=== PATIENT | female | born 1950 | race Caucasian/White ===

== ENCOUNTER 2017-01-28 09:16 | Outpatient (CLI) | payer MEDICARE, BC ==
[2017-01-28 09:59] VITALS: BMI 38.7
== END 2017-01-28 09:17 | disposition home or self-care (01) ==
LOC: LABBT 09:16
PROVIDERS: ATTEND Orthopaedic Surgery Hand Surgery
DX: Z01.812 Encounter for preprocedural laboratory examination (principal); M65.321 Trigger finger, right index finger

== ENCOUNTER 2017-01-29 13:12 | Day surgery (SDC) | payer MEDICARE, BC ==
[2017-01-29] MEDS ORDERED: CEFAZOLIN/Water 2 GM/20 ML SYRINGE ONE (18:16)
[2017-01-29] MEDS ORDERED: Fentanyl 100 MCG/2 ML VIAL ONE (20:16)
[2017-01-29] MEDS ORDERED: Diprivan 20 ML ONE (20:16)
[2017-01-29] MEDS ORDERED: Midazolam HCl 2 mg/2 ml Vial ONE (20:16)
[2017-01-29] MEDS ORDERED: Bupivacaine/Epinephrine 0.25% 30 ML VIAL ONE (20:24)
[2017-01-29] MEDS ORDERED: Betamet Acet/Betamet Na Ph 30 MG/5 ML VIAL ONE (20:24)
[2017-01-29] MEDS ORDERED: Bupivacaine PF 0.5% 30 ML VIAL ONE (20:26)
[2017-01-29] MEDS ORDERED: Propofol 200 MG/20 ML VIAL ONE (20:45)
[2017-01-29] MEDS ORDERED: Ketorolac Tromethamine 30 MG/ML VIAL ONE (20:45)
[2017-01-29] MEDS ORDERED: traMADol HCl 50 MG TAB ONE (21:59)
--- NOTE | 2017-01-30 06:32 | OP ---
DATE OF PROCEDURE: 01/29/2017 PREOPERATIVE DIAGNOSIS: Right index finger trigger digit. FINDINGS: Right index finger trigger digit has a very tight A1 pippa with tenosynovial edema swell ing especially proximal to this. PROCEDURE PERFORMED: Right index finger trigger digit release. FINDINGS: Small amount of tenosynovium, which was resected, but did not require formal radical teno synovectomy. SURGEON: Yazan Black M.D. VIROLOGY TEACHER: Jose De Jesus Morel, Wafer Fab Technician. COMPLICATIONS: None. TOURNIQUET TIME: 15 minutes. ESTIMATED BLOOD LOSS: 5 mL. INDICATIONS: The patient with failed conservative treatment to include injection, therapy for karthik er digits, become very thick for now and limiting her activities. DESCRIPTION OF PROCEDURE: After successful propofol anesthesia by [place] anesthesia, patient was given 12 mL of 0.5% metacarpophalangeal joint level block with palmar approach and this was along th e incision outlined zigzag centered on the A1 pippa was very thick. Then, waiting appropriate numb er of minutes, approximately 9, for the medicine to setup, we finished exsanguinating the limb and e xsanguinated the tourniquet after joint preparation, and we were able to perform a zigzag incision i n line with the A1 pippa. Digital nerve branch identified, protected away from the center field, a nd the pippa was identified under direct visualization. We then released it with a [place] blade an d then inspected proximally distal side and proximal to the A1 pippa and marked a small amount of t enosynovial edema, which was resected. No formal tenosynovectomy was indicated. We then closed the incision with interrupted 4-0 nylon in simple pattern. Bulky dressing was applied. The patient le ft the operating room with a pink digit, and no evidence of anesthetic or operative complication.
== END 2017-01-29 22:20 | disposition home or self-care (01) ==
LOC: SDC 13:12
PROVIDERS: ATTEND Orthopaedic Surgery Hand Surgery
PROC: 0LN70ZZ Release Right Hand Tendon, Open Approach (ICD-10-PCS; principal; 2017-01-29)
DX: M65.321 Trigger finger, right index finger (principal); G47.33 Obstructive sleep apnea (adult) (pediatric); M06.9 Rheumatoid arthritis, unspecified; E78.5 Hyperlipidemia, unspecified; E10.22 Type 1 diabetes mellitus with diabetic chronic kidney disease; I12.9 Hypertensive chronic kidney disease with stage 1 through stage 4 chronic kidney disease, or unspecified chronic kidney disease; N18.9 Chronic kidney disease, unspecified; D69.6 Thrombocytopenia, unspecified; Z79.82 Long term (current) use of aspirin; Z79.899 Other long term (current) drug therapy; Z99.89 Dependence on other enabling machines and devices; Z88.5 Allergy status to narcotic agent; Z88.2 Allergy status to sulfonamides; Z88.7 Allergy status to serum and vaccine; Z88.8 Allergy status to other drugs, medicaments and biological substances; Z91.041 Radiographic dye allergy status; Z98.1 Arthrodesis status; Z96.0 Presence of urogenital implants; Z90.710 Acquired absence of both cervix and uterus; Z90.49 Acquired absence of other specified parts of digestive tract; Z98.890 Other specified postprocedural states
CPT/HCPCS: J0702; J1885; J2250; J2704; J3010; S0020

== ENCOUNTER 2017-12-11 11:13 | Outpatient (CLI) | payer MEDICARE, BC | END 2017-12-11 11:14 | disposition home or self-care (01) | LOC: BICRAD 11:13 | DX: M13.0 Polyarthritis, unspecified (principal); M25.50 Pain in unspecified joint; M25.60 Stiffness of unspecified joint, not elsewhere classified; M19.041 Primary osteoarthritis, right hand; M20.091 Other deformity of right finger(s); M20.092 Other deformity of left finger(s); M17.12 Unilateral primary osteoarthritis, left knee; M17.11 Unilateral primary osteoarthritis, right knee; M47.896 Other spondylosis, lumbar region; M51.36 Other intervertebral disc degeneration, lumbar region; M46.92 Unspecified inflammatory spondylopathy, cervical region; Z98.890 Other specified postprocedural states | CPT/HCPCS: 36415; 72040; 72100; 80053; 80074; 81003; 82306; 82550; 83516; 83520; 84436; 84443; 84479; 84550; 85025; 85652; 86038; 86060; 86140; 86200; 86225; 86235; 86376; 86812 ==

== ENCOUNTER 2018-01-07 05:59 | Day surgery (SDC) | payer MEDICARE, BC ==
[2018-01-06 09:34] VITALS: BMI 33.2
[2018-01-07] MEDS ORDERED: CEFAZOLIN/Water 2 GM/20 ML SYRINGE ONE (06:37)
[2018-01-07] MEDS ORDERED: Bacitracin Zinc Ointment 30 gm TUBE ONE (06:45)
[2018-01-07] MEDS ORDERED: Bupivacaine PF 0.5% 30 ML VIAL ONE (06:45)
[2018-01-07] MEDS ORDERED: Betamet Acet/Betamet Na Ph 30 MG/5 ML VIAL ONE (06:45)
[2018-01-07] MEDS ORDERED: Fentanyl 100 MCG/2 ML VIAL ONE (06:54)
--- NOTE | 2018-01-07 10:22 | OP ---
DATE OF PROCEDURE: 01/07/2018 PREOPERATIVE DIAGNOSIS: Left carpal tunnel syndrome. POSTOPERATIVE DIAGNOSIS: Left carpal tunnel syndrome. FINDINGS: Very tight transcarpal ligament distal one-third and central third. PROCEDURE PERFORMED: Carpal tunnel release, left. SURGEON: Yazan Black MD ANESTHESIA: General LMA technique augmented by 10 mL of 0.5% metacarpophalangeal joint block at the level of the incision. INCISION TYPE: Mini 2.0 cm incision just proximal to the volar flexion crease. INJECTABLE: 1. 10 mL 0.5% Marcaine, 5 given before the procedure and 5 after along the incision line. 2. 3 mL of Celestone (betamethasone) 80 mg per mL into the carpal canal over the nerve. No hourglass formation seen. Mild stippling. DESCRIPTION OF PROCEDURE: After successful general LMA technique, the limb was prepped and draped. Timeout was done appropriately to include beta fozia and delineation as is customary and central to this facility. The patient then had the identified limb matched the consent, history and physical and the timeout. The limb was exsanguinated, and the tourniquet inflated to 250 mmHg pressure with the entire roll eileen t padding used to pad the tourniquet. The patient then had a mini incision outlined in line from med ial to lateral with the center portion of the ring finger and as far distal as Tineo's cardinal line , therefore approximately 5 mL distal to the volar flexion crease. This was carried through the skin and subcutaneous tissue until we found the transverse carpal ligament was very tight as described ab tra. We then released it from the mid portion distal end of it under direct visualization with a com bination of [place] blade and tenotomy scissors. Same technique was used to release it from the mid p ortion proximally. The findings listed above were then visualized, all the digital branches were int act. We then placed 3 mL of Celestone over the nerve in a drip technique. Deflated tourniquet and o btained hemostasis. The incision was closed with interrupted 4-0 nylon in a mattress pattern. Bulky dressing was applied . The patient left the operating room without evidence of anesthetic or operative complication.
[2018-01-07] MEDS ORDERED: Ondansetron HCl/PF 4 MG/2 ML Vial ONE (12:50)
[2018-01-07] MEDS ORDERED: Lidocaine 1% PF 5 ML VIAL ONE (12:50)
[2018-01-07] MEDS ORDERED: ePHEDrine/0.9% NaCl/PF SYRINGE 50 mg/10 ml ONE (12:50)
[2018-01-07] MEDS ORDERED: PHENYLEPHRINE-NS 100 MCG/ML 10 ML SYRINGE ONE (12:50)
[2018-01-07] MEDS ORDERED: PROPOFOL 200 MG/20 ML VIAL ONE (12:50)
== END 2018-01-07 09:39 | disposition home or self-care (01) ==
LOC: SDC 05:59
PROVIDERS: ATTEND Orthopaedic Surgery Hand Surgery
PROC: 01N50ZZ Release Median Nerve, Open Approach (ICD-10-PCS; principal; 2018-01-07)
DX: G56.03 Carpal tunnel syndrome, bilateral upper limbs (principal); E10.9 Type 1 diabetes mellitus without complications; M65.4 Radial styloid tenosynovitis [de Quervain]; M19.90 Unspecified osteoarthritis, unspecified site; M65.30 Trigger finger, unspecified finger; I10 Essential (primary) hypertension; G47.30 Sleep apnea, unspecified; Z79.4 Long term (current) use of insulin; Z79.899 Other long term (current) drug therapy
CPT/HCPCS: 36416; J0131; J0702; J2001; J2405; J2704; J3010; S0020

== ENCOUNTER 2019-04-21 13:22 | Outpatient (CLI) | payer MEDICARE, BC ==
--- NOTE | 2019-04-21 13:57 | BD ---
BONE DENSITOMETRY: Date: 04/21/2019 HISTORY: Postmenopausal screening. FINDINGS: Lumbar Spine: BMD (g/cm2) L1 1.290 T-Score: 2.7 L2 1.265 T-Score: 2.2 L3 1.376 T-Score: 2.7 L4 1.517 T-Score: 4.1 Total 1.358 T-Score: 2.8 Left Femoral Neck: 0.958 T-Score: 1.0 Total Femur: 1.162 T-Score: 1.8 IMPRESSION: Bone mineral density of the lumbar spine and femoral neck are both within normal range. POS: [facility]
== END 2019-04-21 13:23 | disposition home or self-care (01) ==
LOC: BICMAMMO 13:22
PROVIDERS: ATTEND Internal Medicine
DX: Z13.820 Encounter for screening for osteoporosis (principal)
CPT/HCPCS: 77080

== ENCOUNTER 2019-05-14 09:21 | Outpatient (CLI) | payer MEDICARE, BC | END 2019-05-14 09:22 | disposition home or self-care (01) | LOC: CTENTCT 09:21 | PROVIDERS: ATTEND Otolaryngology Plastic Surgery within the Head & Neck | DX: J01.91 Acute recurrent sinusitis, unspecified (principal) | CPT/HCPCS: 36415; 70486 ==

== ENCOUNTER 2019-10-13 10:41 | Outpatient (CLI) | payer MEDICARE, BC ==
--- NOTE | 2019-10-13 11:12 | RAD ---
EXAM: Two views chest PROVIDED CLINICAL HISTORY: Cough. COMPARISON: 04/04/2015 FINDINGS: Cardiac silhouette and pulmonary vasculature are within normal limits. Elevation right hemidiaphragm is again present. Lungs are clear. Postoperative changes lower cervical spine are present with degenerative changes in the thoracic spine. Left-sided PICC line and drainage catheter overlying righ t upper quadrant are no longer seen. No other interval change. IMPRESSION: No acute cardiopulmonary process.
== END 2019-10-13 10:42 | disposition home or self-care (01) ==
LOC: BICRAD 10:41
PROVIDERS: ATTEND Internal Medicine
DX: R05 Cough (principal); R11.0 Nausea; M06.9 Rheumatoid arthritis, unspecified
CPT/HCPCS: 36415; 71046; 80053; 80069; 80076; 81001; 82570; 83036; 83520; 84156; 84443; 85025; 85652; 86200; 87086

== ENCOUNTER 2019-10-20 09:44 | Outpatient (CLI) | payer MEDICARE, BC ==
--- NOTE | 2019-10-20 11:07 | ULT ---
Abdominal ultrasound: Grayscale images of abdomen obtained according to protocol. INDICATIONS: Abdominal pain FINDINGS: Patient is status post cholecystectomy. Common bile duct is normal caliber. Liver and spleen appear unremarkable. Pancreas is mostly obscured but appears unremarkable as visualized. Visualized aorta and IVC appear unremarkable. 2.0 cm cyst superior left kidney. Kidneys otherwise unremarkable. IMPRESSION: 1. Left renal cyst 2. Abdominal ultrasound otherwise unremarkable
== END 2019-10-20 09:45 | disposition home or self-care (01) ==
LOC: BICULT 09:44
PROVIDERS: ATTEND Internal Medicine
DX: M54.9 Dorsalgia, unspecified (principal); N28.1 Cyst of kidney, acquired
CPT/HCPCS: 93975

== ENCOUNTER 2020-05-30 13:03 | Outpatient (CLI) | payer MEDICARE, BC | END 2020-05-30 13:04 | disposition home or self-care (01) | LOC: BICRAD 13:03 | PROVIDERS: ATTEND Internal Medicine | DX: Z01.818 Encounter for other preprocedural examination (principal); E11.9 Type 2 diabetes mellitus without complications; Z79.899 Other long term (current) drug therapy | CPT/HCPCS: 71046; 80053; 81001; 82043; 83036; 85025; 85610; 85730 ==

== ENCOUNTER 2020-06-25 12:16 | Emergency (ER) | payer MEDICARE, BC ==
[2020-06-25 14:31] LABS: #Basophils 0.1 thou/uL (0.0-0.2); #Eosinphils 0.1 thou/uL (0.0-0.7); #Lymphocytes 1.9 thou/uL (1.20-3.40); #Monocytes 0.4 thou/uL (0.11-0.59); #Neutrophils 6.8 thou/uL (1.40-6.50); %Basophils 0.8 % (0.0-1.0); %Eosinophils 1.6 % (0.0-10.0); %Lymphocytes 20.1 % (21.0-51.0); %Monocytes 4.6 % (0.0-10.0); %Neutrophils 72.9 % (42.0-75.0); Hemoglobin 8.9 g/dL (12.0-16.0); Mean Corpuscular HGB CONC 32.5 g/dL (32.0-36.0); Mean Corpuscular Hemoglobin 33.4 pg (27.0-31.0); Mean Platelet Volume 8.5 fL (7.4-10.4); Platelet Count 186 thou/uL (130-400); RBC Distribution Width 12.2 % (11.5-14.5); Red Blood Cell (RBC) Count 2.67 mill/uL (4.20-5.40); White Blood Cell (WBC) Count 9.4 thou/uL (4.8-10.8)
[2020-06-25 14:37] LABS: INR-International Normal Ratio 1.1; Prothrombin Time 14.6 sec (12.0-14.7)
[2020-06-25 14:52] LABS: ALT (SGPT) Less than 7 U/L (8-55); AST (SGOT) 10 U/L (5-34); Albumin 3.3 g/dL (3.4-4.8); Alkaline Phosphatase 116 U/L (40-110); Anion Gap 15 mmol/L (10-20); BUN (Urea Nitrogen) 45 mg/dL (9.8-20.1); Bilirubin, Total 0.4 mg/dL (0.2-1.2); Calc. Creatinine Clearance 0 mL/min (70-130); Calcium 8.1 mg/dL (7.8-10.44); Carbon Dioxide 21 mmol/L (23-31); Chloride 109 mmol/L (98-107); Globulin 2.3 g/dL (2.4-3.5); Glucose 269 mg/dL (83-110); Potassium 4.7 mmol/L (3.5-5.1); Protein, Total 5.6 g/dL (5.8-8.1); Sodium 140 mmol/L (136-145)
[2020-06-25] MEDS ORDERED: Morphine 2 MG/ML VIAL ONE (15:26)
[2020-06-25 17:11] LABS: SARS-CoV-2 PCR by NAA Not Detected (NotDetected)
[2020-06-25] MEDS ORDERED: HYDROcodone/Acetaminophen 5/325 mg Tablet ONE (18:19)
== END 2020-06-25 18:40 | disposition home or self-care (01) ==
LOC: ERS 12:16
DX: I82.431 Acute embolism and thrombosis of right popliteal vein (principal); R06.02 Shortness of breath; R55 Syncope and collapse; Z20.822 Contact with and (suspected) exposure to COVID-19; M06.9 Rheumatoid arthritis, unspecified; I12.9 Hypertensive chronic kidney disease with stage 1 through stage 4 chronic kidney disease, or unspecified chronic kidney disease; E11.22 Type 2 diabetes mellitus with diabetic chronic kidney disease; E78.5 Hyperlipidemia, unspecified; E78.00 Pure hypercholesterolemia, unspecified; Z79.4 Long term (current) use of insulin; Z79.899 Other long term (current) drug therapy
CPT/HCPCS: 71045; 78451; 80053; 82274; 83880; 84484; 85025; 85610; 85730; 93005; 93970; 94760; A9540; J2270; U0003; U0005; 36415; 87635; 96374

== ENCOUNTER 2020-10-26 09:53 | Outpatient (CLI) | payer MEDICARE, BC | END 2020-10-26 09:54 | disposition home or self-care (01) | LOC: BICULT 09:53 | PROVIDERS: ATTEND Internal Medicine | DX: G45.9 Transient cerebral ischemic attack, unspecified (principal); I65.23 Occlusion and stenosis of bilateral carotid arteries | CPT/HCPCS: 93880 ==

== ENCOUNTER 2021-03-26 07:01 | Inpatient (IN) | payer MEDICARE, BC ==
[2021-03-26 08:24] LABS: #Basophils 0.1 thou/uL (0.0-0.2); #Lymphocytes 1.2 thou/uL (1.20-3.40); #Monocytes 0.4 thou/uL (0.11-0.59); #Neutrophils 5.7 thou/uL (1.40-6.50); %Basophils 0.8 % (0.0-1.0); %Eosinophils 0.1 % (0.0-10.0); %Neutrophils 78.2 % (42.0-75.0); Hemoglobin 10.5 g/dL (12.0-16.0); Mean Corpuscular Hemoglobin 32.8 pg (27.0-31.0); Mean Corpuscular Volume 99.4 fL (78.0-98.0); Platelet Count 172 thou/uL (130-400); RBC Distribution Width 13.1 % (11.5-14.5); White Blood Cell (WBC) Count 7.3 thou/uL (4.8-10.8)
[2021-03-26] MEDS ORDERED: Ondansetron PF 4 MG/2 ML Vial ONE (08:29)
[2021-03-26] MEDS ORDERED: methylPREDNISolone Sod Succ/PF 125 MG/2 ML VIAL ONE (08:29)
[2021-03-26] MEDS ORDERED: PROVENTIL INHALER 6.7 G (200 INHALATIONS) ONE (08:33)
[2021-03-26] MEDS ORDERED: Albuterol 200 PUFF (6.7GM INHALER) ONE (08:35)
[2021-03-26 08:40] LABS: ALT (SGPT) 14 U/L (8-55); AST (SGOT) 26 U/L (5-34); Albumin 3.8 g/dL (3.4-4.8); Alkaline Phosphatase 136 U/L (40-110); Anion Gap 18 mmol/L (10-20); BUN (Urea Nitrogen) 53 mg/dL (9.8-20.1); Bilirubin, Total 0.5 mg/dL (0.2-1.2); Calc. Creatinine Clearance 0 mL/min (70-130); Calcium 9.2 mg/dL (7.8-10.44); Carbon Dioxide 18 mmol/L (23-31); Chloride 104 mmol/L (98-107); Globulin 3.1 g/dL (2.4-3.5); Glucose 114 mg/dL (83-110); Potassium 4.3 mmol/L (3.5-5.1); Protein, Total 6.9 g/dL (5.8-8.1); Sodium 136 mmol/L (136-145)
[2021-03-26] MEDS ORDERED: cefTRIAXone\\ROCEPHIN 2 GM VIAL ONE (09:42)
[2021-03-26] MEDS ORDERED: Azithromycin 500 MG VIAL ONE (09:42)
[2021-03-26] MEDS ORDERED: Bisacodyl 5 MG TAB PO PRN (10:34)
[2021-03-26] MEDS ORDERED: cefTRIAXone\\ROCEPHIN 1 GM in Sodium Chloride 0.9% 100 ML IVPB SCH (11:00)
[2021-03-26 11:21] LABS: SARS-CoV-2 NAA Rapid Test DETECTED (NotDetected)
[2021-03-26] MEDS ORDERED: Dexamethasone 10 MG/ML VIAL SLOW IVP SCH (12:15)
[2021-03-26] MEDS ORDERED: Ascorbic Acid 500 mg Chewable Tablet PO SCH (12:15)
[2021-03-26] MEDS ORDERED: Zinc Sulfate 220 MG CAP PO SCH (12:15)
[2021-03-26] MEDS: Azithromycin 500 MG in Sodium Chloride 0.9% 250 ML 250 ML IVPB SCH (14:19)
[2021-03-26] MEDS ORDERED: Dexamethasone 10 MG/ML VIAL ONE (15:08)
[2021-03-26] MEDS ORDERED: Promethazine HCl 25 MG/ML VIAL ONE (15:41)
[2021-03-26] MEDS ORDERED: Acetaminophen 325 MG TAB ONE (15:41)
[2021-03-26] MEDS: Acetaminophen 325 MG TAB PO PRN ×2 (15:57→21:54)
[2021-03-26] MEDS: Promethazine HCl 25 MG in Sodium Chloride 0.9% 50 ML IVPB PRN ×2 (15:58→21:54)
[2021-03-26] MEDS ORDERED: Dextrose 5% in Water 1,000 ML IV PRN (19:29)
[2021-03-26] MEDS ORDERED: Dextrose 50% Abboject 50 ML SYRINGE SLOW IVP PRN (19:29)
[2021-03-26 20:58] VITALS: BMI 40.2
[2021-03-26] MEDS ORDERED: GUAIFENESIN SF SOLN 200 MG/10 ML UDCUP PO PRN (21:45)
[2021-03-26] MEDS: Benzonatate 100 MG CAP PO PRN (22:05)
[2021-03-27] MEDS: Promethazine HCl 25 MG in Sodium Chloride 0.9% 50 ML IVPB PRN ×3 (03:14→20:47)
[2021-03-27 06:26] LABS: #Lymphocytes 1.3 thou/uL (1.20-3.40); #Monocytes 0.7 thou/uL (0.11-0.59); #Neutrophils 6.1 thou/uL (1.40-6.50); %Basophils 0.5 % (0.0-1.0); %Eosinophils 0.3 % (0.0-10.0); %Lymphocytes 16.3 % (21.0-51.0); %Neutrophils 74.9 % (42.0-75.0); Hemoglobin 10.5 g/dL (12.0-16.0); Mean Corpuscular HGB CONC 33.4 g/dL (32.0-36.0); Mean Corpuscular Hemoglobin 34.3 pg (27.0-31.0); Mean Platelet Volume 8.5 fL (7.4-10.4); Platelet Count 161 thou/uL (130-400); RBC Distribution Width 13.2 % (11.5-14.5); Red Blood Cell (RBC) Count 3.07 mill/uL (4.20-5.40); White Blood Cell (WBC) Count 8.1 thou/uL (4.8-10.8)
[2021-03-27 06:51] LABS: Anion Gap 17 mmol/L (10-20); BUN (Urea Nitrogen) 48 mg/dL (9.8-20.1); Calc. Creatinine Clearance 51 mL/min (70-130); Calcium 8.9 mg/dL (7.8-10.44); Carbon Dioxide 16 mmol/L (23-31); Chloride 110 mmol/L (98-107); Glucose 100 mg/dL (83-110); Sodium 138 mmol/L (136-145)
[2021-03-27] MEDS: Zinc Sulfate 220 MG CAP PO SCH (09:54)
[2021-03-27] MEDS: Benzonatate 100 MG CAP PO PRN ×2 (09:54→20:46)
[2021-03-27] MEDS: Ascorbic Acid 500 mg Chewable Tablet PO SCH (09:54)
[2021-03-27] MEDS: Dexamethasone 10 MG/ML VIAL SLOW IVP SCH (09:55)
[2021-03-27] MEDS: Azithromycin 500 MG in Sodium Chloride 0.9% 250 ML 250 ML IVPB SCH (11:22)
[2021-03-27] MEDS ORDERED: cefTRIAXone\\ROCEPHIN 1 GM in Sodium Chloride 0.9% 100 ML IVPB SCH (12:00)
[2021-03-27] MEDS ORDERED: traMADol HCl 50 MG TAB PO PRN (12:25)
[2021-03-27] MEDS: HumaLOG 300 UNITS/3 ML VIAL SC PRN (17:16)
[2021-03-27] MEDS: Carvedilol 6.25 MG TAB PO SCH (20:45)
[2021-03-27] MEDS: Apixaban 5 MG TAB PO SCH (20:45)
[2021-03-27] MEDS: tiZANidine HCl 4 MG TAB PO SCH (20:46)
[2021-03-27] MEDS: Melatonin 3 MG TAB PO SCH (20:46)
[2021-03-27] MEDS: Lantus 1000 UNITS/10 ML VIAL SC SCH (20:47)
[2021-03-28] MEDS: HumaLOG 300 UNITS/3 ML VIAL SC PRN ×4 (05:52→20:17)
[2021-03-28 05:55] LABS: #Eosinphils 0.1 thou/uL (0.0-0.7); #Lymphocytes 1.3 thou/uL (1.20-3.40); #Monocytes 0.5 thou/uL (0.11-0.59); #Neutrophils 2.7 thou/uL (1.40-6.50); %Basophils 0.7 % (0.0-1.0); %Eosinophils 1.5 % (0.0-10.0); %Monocytes 11.3 % (0.0-10.0); %Neutrophils 58.5 % (42.0-75.0); Hemoglobin 10.1 g/dL (12.0-16.0); Mean Corpuscular HGB CONC 33.8 g/dL (32.0-36.0); Mean Corpuscular Hemoglobin 34.1 pg (27.0-31.0); Mean Platelet Volume 8.3 fL (7.4-10.4); Platelet Count 171 thou/uL (130-400); RBC Distribution Width 12.9 % (11.5-14.5); Red Blood Cell (RBC) Count 2.96 mill/uL (4.20-5.40); White Blood Cell (WBC) Count 4.7 thou/uL (4.8-10.8)
[2021-03-28 06:12] LABS: Anion Gap 16 mmol/L (10-20); BUN (Urea Nitrogen) 50 mg/dL (9.8-20.1); Calc. Creatinine Clearance 50 mL/min (70-130); Calcium 8.6 mg/dL (7.8-10.44); Carbon Dioxide 20 mmol/L (23-31); Chloride 107 mmol/L (98-107); Glucose 159 mg/dL (83-110); Potassium 4.5 mmol/L (3.5-5.1); Sodium 138 mmol/L (136-145)
[2021-03-28] MEDS ORDERED: Apixaban 5 MG TAB PO SCH (09:00)
[2021-03-28] MEDS: Ascorbic Acid 500 mg Chewable Tablet PO SCH (09:19)
[2021-03-28] MEDS: Zinc Sulfate 220 MG CAP PO SCH (09:19)
[2021-03-28] MEDS: Cholecalciferol 1,000 UNITS (25 MCG) TAB PO SCH (09:19)
[2021-03-28] MEDS: Carvedilol 6.25 MG TAB PO SCH ×2 (09:19→20:08)
[2021-03-28] MEDS: Apixaban 5 MG TAB PO SCH ×2 (09:20→20:08)
[2021-03-28] MEDS: Gabapentin 400 MG CAP PO SCH (09:20)
[2021-03-28] MEDS: Fish Oil 1,000 MG CAP PO SCH (09:20)
[2021-03-28] MEDS: Hydroxychloroquine Sulfate 200 MG TAB PO SCH (09:21)
[2021-03-28] MEDS: hydrALAZINE 10 MG TAB PO SCH (09:21)
[2021-03-28] MEDS: Dexamethasone 10 MG/ML VIAL SLOW IVP SCH (09:22)
[2021-03-28] MEDS: Promethazine HCl 25 MG in Sodium Chloride 0.9% 50 ML IVPB PRN (09:27)
[2021-03-28] MEDS: Sodium Chloride 0.9% 1,000 ML IV SCH (15:40)
[2021-03-28] MEDS: Melatonin 3 MG TAB PO SCH (20:08)
[2021-03-28] MEDS: tiZANidine HCl 4 MG TAB PO SCH (20:08)
[2021-03-28] MEDS: Lantus 1000 UNITS/10 ML VIAL SC SCH (20:17)
[2021-03-29] MEDS: Sodium Chloride 0.9% 1,000 ML IV SCH ×3 (04:21→20:40)
[2021-03-29] MEDS: HumaLOG 300 UNITS/3 ML VIAL SC PRN ×5 (05:13→20:41)
[2021-03-29 08:07] LABS: Hemoglobin 9.9 g/dL (12.0-16.0); Mean Corpuscular HGB CONC 33.2 g/dL (32.0-36.0); Mean Corpuscular Hemoglobin 33.7 pg (27.0-31.0); Mean Platelet Volume 9.1 fL (7.4-10.4); Platelet Count 190 thou/uL (130-400); RBC Distribution Width 12.8 % (11.5-14.5); Red Blood Cell (RBC) Count 2.95 mill/uL (4.20-5.40); White Blood Cell (WBC) Count 5.3 thou/uL (4.8-10.8)
[2021-03-29 08:18] LABS: Anion Gap 14 mmol/L (10-20); BUN (Urea Nitrogen) 58 mg/dL (9.8-20.1); CRP (Inflammatory) 2.65 mg/dL (= or < 0.5); Calc. Creatinine Clearance 44 mL/min (70-130); Calcium 8.6 mg/dL (7.8-10.44); Carbon Dioxide 18 mmol/L (23-31); Chloride 108 mmol/L (98-107); Glucose 365 mg/dL (83-110); Potassium 5.2 mmol/L (3.5-5.1); Sodium 135 mmol/L (136-145)
[2021-03-29] MEDS: Benzonatate 100 MG CAP PO PRN ×2 (09:03→20:31)
[2021-03-29] MEDS: Cholecalciferol 1,000 UNITS (25 MCG) TAB PO SCH (09:04)
[2021-03-29] MEDS: Fish Oil 1,000 MG CAP PO SCH (09:04)
[2021-03-29] MEDS: Gabapentin 400 MG CAP PO SCH (09:04)
[2021-03-29] MEDS: Ascorbic Acid 500 mg Chewable Tablet PO SCH (09:04)
[2021-03-29] MEDS: Dexamethasone 10 MG/ML VIAL SLOW IVP SCH (09:04)
[2021-03-29] MEDS: Zinc Sulfate 220 MG CAP PO SCH (09:05)
[2021-03-29] MEDS: Apixaban 5 MG TAB PO SCH ×2 (09:05→20:31)
[2021-03-29] MEDS: Hydroxychloroquine Sulfate 200 MG TAB PO SCH (09:05)
[2021-03-29] MEDS: hydrALAZINE 10 MG TAB PO SCH (09:05)
[2021-03-29] MEDS: Carvedilol 6.25 MG TAB PO SCH ×2 (09:16→20:31)
[2021-03-29 09:17] LABS: MDiff Complete? YES
[2021-03-29 09:18] LABS: Band 5 % (5-11); Eosinophils 1 % (0-10); Lymphocytes 30 % (21-51); Monocytes 3 % (0-10); Neutrophil 60 % (42-75); Platelet Morphology Comment Appears Adequate; RBC Morphology Normal; Reactive Lymphocytes 1 % (0-10)
[2021-03-29] MEDS: tiZANidine HCl 4 MG TAB PO SCH (20:30)
[2021-03-29] MEDS: Melatonin 3 MG TAB PO SCH (20:31)
[2021-03-29] MEDS: Lantus 1000 UNITS/10 ML VIAL SC SCH (20:38)
[2021-03-30] MEDS: HumaLOG 300 UNITS/3 ML VIAL SC PRN ×3 (05:56→16:31)
[2021-03-30 07:40] VITALS: BP 134/76; TEMP 97.5
[2021-03-30] MEDS: Dexamethasone 10 MG/ML VIAL SLOW IVP SCH (09:01)
[2021-03-30] MEDS: Fish Oil 1,000 MG CAP PO SCH (09:02)
[2021-03-30] MEDS: Gabapentin 400 MG CAP PO SCH (09:02)
[2021-03-30] MEDS: Ascorbic Acid 500 mg Chewable Tablet PO SCH (09:02)
[2021-03-30] MEDS: Apixaban 5 MG TAB PO SCH (09:02)
[2021-03-30] MEDS: Cholecalciferol 1,000 UNITS (25 MCG) TAB PO SCH (09:02)
[2021-03-30] MEDS: Carvedilol 6.25 MG TAB PO SCH (09:03)
[2021-03-30] MEDS: hydrALAZINE 10 MG TAB PO SCH (09:03)
[2021-03-30] MEDS: Hydroxychloroquine Sulfate 200 MG TAB PO SCH (09:03)
[2021-03-30] MEDS: Zinc Sulfate 220 MG CAP PO SCH (09:03)
[2021-03-30 09:22] LABS: #Eosinphils 0.1 thou/uL (0.0-0.7); #Lymphocytes 1.8 thou/uL (1.20-3.40); #Monocytes 0.7 thou/uL (0.11-0.59); #Neutrophils 5.1 thou/uL (1.40-6.50); %Basophils 0.6 % (0.0-1.0); %Eosinophils 0.8 % (0.0-10.0); %Monocytes 8.5 % (0.0-10.0); %Neutrophils 66.1 % (42.0-75.0); Hemoglobin 9.6 g/dL (12.0-16.0); Mean Corpuscular HGB CONC 32.5 g/dL (32.0-36.0); Mean Corpuscular Hemoglobin 32.6 pg (27.0-31.0); Mean Platelet Volume 8.6 fL (7.4-10.4); Platelet Count 230 thou/uL (130-400); RBC Distribution Width 12.6 % (11.5-14.5); Red Blood Cell (RBC) Count 2.96 mill/uL (4.20-5.40); White Blood Cell (WBC) Count 7.6 thou/uL (4.8-10.8)
[2021-03-30 09:38] LABS: ALT (SGPT) 25 U/L (8-55); AST (SGOT) 28 U/L (5-34); Albumin 3.5 g/dL (3.4-4.8); Alkaline Phosphatase 117 U/L (40-110); Anion Gap 15 mmol/L (10-20); BUN (Urea Nitrogen) 55 mg/dL (9.8-20.1); Bilirubin, Total 0.2 mg/dL (0.2-1.2); Calc. Creatinine Clearance 48 mL/min (70-130); Calcium 8.8 mg/dL (7.8-10.44); Carbon Dioxide 19 mmol/L (23-31); Chloride 108 mmol/L (98-107); Globulin 3.1 g/dL (2.4-3.5); Glucose 364 mg/dL (83-110); Magnesium 1.9 mg/dL (1.6-2.6); Phosphorus 2.8 mg/dL (2.3-4.7); Protein, Total 6.6 g/dL (5.8-8.1); Sodium 137 mmol/L (136-145)
[2021-03-30] MEDS ORDERED: HumaLOG 300 UNITS/3 ML VIAL SC SCH (17:00)
== END 2021-03-30 17:18 | disposition home or self-care (01) | DRG 871 ==
LOC: ERS 07:01 → ERHOLD 10:07 → T4-A 18:16
PROVIDERS: ADMIT Internal Medicine; ATTEND Internal Medicine
PROC: 5A09357 Assistance with Respiratory Ventilation, Less than 24 Consecutive Hours, Continuous Positive Airway Pressure (ICD-10-PCS; principal; 2021-03-26)
PROC: 3E0333Z Introduction of Anti-inflammatory into Peripheral Vein, Percutaneous Approach (ICD-10-PCS; 2021-03-27)
PROC: 8E0ZXY6 Isolation (ICD-10-PCS; 2021-03-27)
DX: A41.89 Other specified sepsis (principal); U07.1 COVID-19; J12.82 Pneumonia due to coronavirus disease 2019; J96.01 Acute respiratory failure with hypoxia; N17.9 Acute kidney failure, unspecified; Z23 Encounter for immunization; M06.9 Rheumatoid arthritis, unspecified; E11.22 Type 2 diabetes mellitus with diabetic chronic kidney disease; E78.5 Hyperlipidemia, unspecified; E78.00 Pure hypercholesterolemia, unspecified; I12.9 Hypertensive chronic kidney disease with stage 1 through stage 4 chronic kidney disease, or unspecified chronic kidney disease; N18.30 Chronic kidney disease, stage 3 unspecified; R65.20 Severe sepsis without septic shock; E11.65 Type 2 diabetes mellitus with hyperglycemia; D53.9 Nutritional anemia, unspecified; G47.33 Obstructive sleep apnea (adult) (pediatric); E87.5 Hyperkalemia; Z98.890 Other specified postprocedural states; Z91.011 Allergy to milk products; Z95.828 Presence of other vascular implants and grafts; Z90.49 Acquired absence of other specified parts of digestive tract; Z90.710 Acquired absence of both cervix and uterus; Z88.5 Allergy status to narcotic agent; Z88.2 Allergy status to sulfonamides; Z88.7 Allergy status to serum and vaccine; Z88.8 Allergy status to other drugs, medicaments and biological substances; Z91.041 Radiographic dye allergy status; Z79.899 Other long term (current) drug therapy; Z79.4 Long term (current) use of insulin; Z87.11 Personal history of peptic ulcer disease
CPT/HCPCS: 36415; 36416; 71045; 80048; 80053; 82728; 83605; 83735; 83880; 84100; 84484; 85025; 85379; 86140; 87040; 90471; 90732; 93005; G0009; J0456; J0696; J1100; J1815; J2405; J2550; J2930; J7050; U0002

== ENCOUNTER 2021-05-22 12:01 | Outpatient (CLI) | payer MEDICARE, BC | END 2021-05-22 12:02 | disposition home or self-care (01) | LOC: RAD 12:01 | PROVIDERS: ATTEND Nurse Practitioner Family | DX: R06.09 Other forms of dyspnea (principal); J12.82 Pneumonia due to coronavirus disease 2019; Z73.89 Other problems related to life management difficulty; R53.83 Other fatigue; D64.9 Anemia, unspecified; Z86.16 Personal history of COVID-19 | CPT/HCPCS: 71046 ==

== ENCOUNTER 2023-10-09 15:13 | Inpatient (IN) | payer BC, MEDICARE ==
[2023-10-09 17:14] LABS: Bacteria/HPF None Seen HPF (None Seen); Bilirubin Negative (Negative); Blood, Urine Negative (Negative); CAUTI Indications for Culture Alt mental st,lethar; Clarity Clear (Clear); Glucose, Urine (Dipstick) Normal (Negative); Ketone, Urine Negative (Negative); Leukocyte Negative Leu/uL (Negative); Nitrite Negative (Negative); Protein, Urine (Dipstick) 20 mg/dL (Neg-Trace); RBC/HPF 0-3 HPF (0-3); Specific Gravity, Urine 1.009 (1.002-1.036); Squamous Epithelial 0-3 HPF (0-3); Urobilinogen Normal mg/dL (Less than 2); WBC/HPF 0-3 HPF (0-3); pH, Urine 5.5 (5.0-9.0)
[2023-10-09 17:15] LABS: Urine Culture Reflex No No
[2023-10-09 17:15] LABS: Influenza A by NAA Not Detected (NotDetected); Influenza B by NAA Not Detected (NotDetected); SARS-CoV-2 NAA Rapid Test Not Detected (NotDetected)
[2023-10-09 17:23] LABS: #Basophils 0.03 10x3/uL (0.0-0.2); #Eosinphils Less than 0.03 10x3/uL (0.0-0.7); %Basophils 0.5 % (0.0-1.0); %Eosinophils 0.3 % (0.0-10.0); %Lymphocytes 17.8 % (21.0-51.0); %Monocytes 7.5 % (0.0-10.0); %Neutrophils 73.6 % (42.0-75.0); Hematocrit 33.6 % (36.0-47.0); Mean Corpuscular HGB CONC 32.7 g/dL (32.0-36.0); Mean Corpuscular Volume 100.9 fL (78.0-98.0); Mean Platelet Volume 10.7 fL (7.4-10.4); Platelet Count 270 10x3/uL (130-400); RBC Distribution Width 12.6 % (11.5-14.5); Red Blood Cell (RBC) Count 3.33 mill/uL (4.20-5.40)
[2023-10-09 17:38] LABS: ALT (SGPT) 13 U/L (8-55); AST (SGOT) 31 U/L (5-34); Albumin 4.2 g/dL (3.4-4.8); Alkaline Phosphatase 124 U/L (40-110); Anion Gap 20 mmol/L (10-20); BUN (Urea Nitrogen) 40 mg/dL (9.8-20.1); Bilirubin, Total 0.5 mg/dL (0.2-1.2); Calc. Creatinine Clearance 0 mL/min (70-130); Calcium 9.5 mg/dL (7.8-10.44); Carbon Dioxide 22 mmol/L (23-31); Chloride 99 mmol/L (98-107); Estimated GFR 26; Globulin 2.8 g/dL (2.4-3.5); Glucose 212 mg/dL (83-110); Magnesium 1.5 mg/dL (1.6-2.6); Potassium 4.3 mmol/L (3.5-5.1); Sodium 137 mmol/L (136-145)
[2023-10-09 17:43] LABS: Troponin I 0.045 ng/mL (< 0.028)
[2023-10-09 17:52] LABS: INR-International Normal Ratio 1.2; Prothrombin Time 15.2 sec (12.0-14.7)
[2023-10-09] MEDS ORDERED: Magnesium 2 GM/50 ML BAG (IN WATER) ONE (18:55)
[2023-10-09] MEDS ORDERED: Dextrose 50% Abboject 50 ML SYRINGE SLOW IVP PRN (19:45)
[2023-10-09] MEDS ORDERED: Dextrose 5% in Water 1,000 ML IV PRN (19:45)
[2023-10-09] MEDS ORDERED: Glucagon 1 MG/ML KIT IM PRN (19:45)
[2023-10-09] MEDS ORDERED: Insulin Lispro 100 UNIT/ML 10 ML VIAL SC PRN (19:45)
[2023-10-09] MEDS ORDERED: Labetalol HCl 100 MG/20 ML VIAL ONE (19:50)
[2023-10-09] MEDS ORDERED: Ipratropium/Albuterol 3 ML NEB EZPAP PRN (19:54)
[2023-10-09 21:37] LABS: Troponin I 0.048 ng/mL (< 0.028)
[2023-10-09 22:04] VITALS: BMI 36.8
[2023-10-09] MEDS: Apixaban 5 MG TAB PO SCH (22:17)
[2023-10-09] MEDS: Acetaminophen 325 MG TAB PO PRN (22:42)
[2023-10-09] MEDS: Ondansetron PF 4 MG/2 ML Vial IVP PRN (22:49)
[2023-10-10 00:04] LABS: Troponin I 0.049 ng/mL (< 0.028)
[2023-10-10] MEDS: Metoclopramide HCl 10 MG (2 mL) VIAL IVP SCH (03:40)
[2023-10-10] MEDS: traMADol HCl 50 MG TAB PO SCH (03:40)
[2023-10-10 04:40] LABS: #Basophils Less than 0.03 10x3/uL (0.0-0.2); %Basophils 0.4 % (0.0-1.0); %Eosinophils 0.9 % (0.0-10.0); %Lymphocytes 28.4 % (21.0-51.0); %Neutrophils 57.9 % (42.0-75.0); Hemoglobin 9.8 g/dL (12.0-16.0); Mean Corpuscular HGB CONC 32.7 g/dL (32.0-36.0); Mean Corpuscular Hemoglobin 32.3 pg (27.0-31.0); Platelet Count 238 10x3/uL (130-400); RBC Distribution Width 12.5 % (11.5-14.5); Red Blood Cell (RBC) Count 3.03 mill/uL (4.20-5.40)
[2023-10-10 04:58] LABS: Anion Gap 16 mmol/L (10-20); BUN (Urea Nitrogen) 38 mg/dL (9.8-20.1); Calc. Creatinine Clearance 46 mL/min (70-130); Carbon Dioxide 24 mmol/L (23-31); Chloride 99 mmol/L (98-107); Estimated GFR 28; Glucose 238 mg/dL (83-110); Magnesium 1.9 mg/dL (1.6-2.6); Sodium 135 mmol/L (136-145)
[2023-10-10] MEDS: Carvedilol 6.25 MG TAB PO SCH ×2 (05:39→09:22)
[2023-10-10] MEDS ORDERED: Metolazone 5 MG TAB PO SCH (08:30)
[2023-10-10] MEDS ORDERED: hydrALAZINE 10 MG TAB PO SCH (09:00)
[2023-10-10] MEDS: Amlodipine 5 MG TAB PO SCH (09:22)
[2023-10-10] MEDS: sulfaSALAzine 500 MG TAB PO SCH ×2 (09:23→21:35)
[2023-10-10] MEDS: hydrALAZINE 25 MG TAB PO SCH (09:23)
[2023-10-10] MEDS: Furosemide 20 MG TAB PO SCH (09:23)
[2023-10-10] MEDS: Hydroxychloroquine Sulfate 200 MG TAB PO SCH (09:23)
[2023-10-10] MEDS: Insulin Lispro 100 UNIT/ML 10 ML VIAL SC PRN ×2 (11:55→21:37)
[2023-10-10] MEDS ORDERED: Melatonin 3 MG TAB PO SCH (21:00)
[2023-10-10] MEDS: traMADol HCl 50 MG TAB PO PRN (21:35)
[2023-10-10] MEDS: Insulin Glargine 30 UNITS/0.3 ML VIAL SC SCH (21:36)
[2023-10-11 03:56] LABS: #Basophils Less than 0.03 10x3/uL (0.0-0.2); %Basophils 0.4 % (0.0-1.0); %Eosinophils 1.6 % (0.0-10.0); %Lymphocytes 32.4 % (21.0-51.0); %Neutrophils 53.2 % (42.0-75.0); Hematocrit 31.2 % (36.0-47.0); Hemoglobin 10.1 g/dL (12.0-16.0); Mean Corpuscular HGB CONC 32.4 g/dL (32.0-36.0); Mean Corpuscular Hemoglobin 33.6 pg (27.0-31.0); Mean Corpuscular Volume 103.7 fL (78.0-98.0); Mean Platelet Volume 10.8 fL (7.4-10.4); Platelet Count 250 10x3/uL (130-400); RBC Distribution Width 12.4 % (11.5-14.5); Red Blood Cell (RBC) Count 3.01 mill/uL (4.20-5.40)
[2023-10-11 04:17] LABS: Anion Gap 18 mmol/L (10-20); BUN (Urea Nitrogen) 40 mg/dL (9.8-20.1); Calc. Creatinine Clearance 45 mL/min (70-130); Calcium 9.2 mg/dL (7.8-10.44); Carbon Dioxide 25 mmol/L (23-31); Chloride 97 mmol/L (98-107); Estimated GFR 27; Glucose 203 mg/dL (83-110); Potassium 3.9 mmol/L (3.5-5.1); Sodium 136 mmol/L (136-145)
[2023-10-11] MEDS: Amlodipine 10 MG TAB PO SCH (09:12)
[2023-10-11 16:54] VITALS: TEMP 98
[2023-10-11 17:26] VITALS: BP 141/64
== END 2023-10-11 21:20 | disposition home or self-care (01) | DRG 281 ==
LOC: ERS 15:13 → 2SW 19:34 → OBSVTOIN 10-10 14:46
PROVIDERS: ADMIT Internal Medicine; ATTEND Internal Medicine
DX: I16.0 Hypertensive urgency (principal); E87.1 Hypo-osmolality and hyponatremia; I21.A1 Myocardial infarction type 2; I50.32 Chronic diastolic (congestive) heart failure; I48.91 Unspecified atrial fibrillation; I13.0 Hypertensive heart and chronic kidney disease with heart failure and stage 1 through stage 4 chronic kidney disease, or unspecified chronic kidney disease; E78.5 Hyperlipidemia, unspecified; D63.1 Anemia in chronic kidney disease; E11.22 Type 2 diabetes mellitus with diabetic chronic kidney disease; I48.0 Paroxysmal atrial fibrillation; N18.30 Chronic kidney disease, stage 3 unspecified; G47.33 Obstructive sleep apnea (adult) (pediatric); Z88.2 Allergy status to sulfonamides; Z79.4 Long term (current) use of insulin; Z79.891 Long term (current) use of opiate analgesic; Z90.49 Acquired absence of other specified parts of digestive tract; Z90.710 Acquired absence of both cervix and uterus; Z79.01 Long term (current) use of anticoagulants
CPT/HCPCS: 36415; 36416; 51701; 70450; 71045; 80048; 80053; 81001; 83605; 83735; 83880; 84484; 85025; 85610; 85730; 87040; 87086; 93005; 93306; 93880; 94760; 96365; 96366; 96374; 96375; G0378; J0780; J1815; J2405; J2765; J3475

== ENCOUNTER 2023-12-12 19:14 | Emergency (ER) | payer MEDICARE ==
[2023-12-12] MEDS ORDERED: Ketorolac Tromethamine 30 MG (1 mL) VIAL ONE (20:35)
[2023-12-12] MEDS ORDERED: hydrALAZINE 20 MG/ML VIAL ONE (20:35)
[2023-12-12 20:46] LABS: #Basophils 0.04 10x3/uL (0.0-0.2); %Basophils 0.7 % (0.0-1.0); %Eosinophils 1.2 % (0.0-10.0); %Lymphocytes 26.6 % (21.0-51.0); %Monocytes 10.4 % (0.0-10.0); %Neutrophils 60.3 % (42.0-75.0); Hematocrit 29.9 % (36.0-47.0); Hemoglobin 9.5 g/dL (12.0-16.0); Mean Corpuscular HGB CONC 31.8 g/dL (32.0-36.0); Mean Corpuscular Hemoglobin 33.7 pg (27.0-31.0); Mean Platelet Volume 10.8 fL (7.4-10.4); Platelet Count 282 10x3/uL (130-400); RBC Distribution Width 12.7 % (11.5-14.5); Red Blood Cell (RBC) Count 2.82 mill/uL (4.20-5.40)
[2023-12-12] MEDS ORDERED: Metoclopramide HCl 10 MG (2 mL) VIAL ONE (20:54)
[2023-12-12 21:04] LABS: ALT (SGPT) 10 U/L (8-55); AST (SGOT) 18 U/L (5-34); Albumin 3.6 g/dL (3.4-4.8); Alkaline Phosphatase 112 U/L (40-110); Anion Gap 13 mmol/L (10-20); BUN (Urea Nitrogen) 32 mg/dL (9.8-20.1); Bilirubin, Total 0.4 mg/dL (0.2-1.2); Calc. Creatinine Clearance 0 mL/min (70-130); Calcium 9.2 mg/dL (7.8-10.44); Carbon Dioxide 19 mmol/L (23-31); Chloride 107 mmol/L (98-107); Estimated GFR 39; Globulin 2.8 g/dL (2.4-3.5); Glucose 219 mg/dL (83-110); Potassium 4.3 mmol/L (3.5-5.1); Protein, Total 6.4 g/dL (5.8-8.1); Sodium 135 mmol/L (136-145)
[2023-12-12 21:10] LABS: Troponin I 0.024 ng/mL (< 0.028)
== END 2023-12-12 23:08 | disposition home or self-care (01) ==
LOC: ERS 19:14
DX: I12.9 Hypertensive chronic kidney disease with stage 1 through stage 4 chronic kidney disease, or unspecified chronic kidney disease (principal); E11.22 Type 2 diabetes mellitus with diabetic chronic kidney disease; N18.9 Chronic kidney disease, unspecified; G43.909 Migraine, unspecified, not intractable, without status migrainosus
CPT/HCPCS: 70450; 80053; 83880; 84484; 85025; 93005; J0360; J1885; J2765; 36415; 96374; 96375

== ENCOUNTER 2023-12-19 18:10 | Inpatient (IN) | payer MEDICARE ==
[2023-12-19] MEDS ORDERED: Furosemide 40 MG (4 mL) VIAL ONE (18:18)
[2023-12-19 18:20] LABS: Actual Bicarbonate (HCO3a) 23.3 mEq/L (22-28); Analyzer IN Cardio ER; Base Excess (BEa) 0.9 mEq/L (-2.0 to +3.0); CO2 Tension 29.4 mmHg (35.0-45.0); Calcium, Ionized (arterial) 1.17 mmol/L (1.12-1.30); Carboxyhemoglobin (COHb) 0.2 gm% (0.0-3.0); Hematocrit-ABG 31 % (36.0-47.0); Hemoglobin (Hb) 10.4 g/dL (12.0-16.0); Potassium - ABG Lab 4.48 mmol/L (3.70-5.30); pH, Arterial 7.516 (7.35-7.45)
[2023-12-19] MEDS ORDERED: Labetalol HCl 100 MG/20 ML VIAL ONE (18:46)
[2023-12-19 19:07] LABS: #Basophils 0.04 10x3/uL (0.0-0.2); %Basophils 0.8 % (0.0-1.0); %Eosinophils 1.5 % (0.0-10.0); %Lymphocytes 34.3 % (21.0-51.0); %Monocytes 13.3 % (0.0-10.0); %Neutrophils 49.7 % (42.0-75.0); Hematocrit 31.5 % (36.0-47.0); Hemoglobin 9.8 g/dL (12.0-16.0); Mean Corpuscular HGB CONC 31.1 g/dL (32.0-36.0); Mean Corpuscular Hemoglobin 32.7 pg (27.0-31.0); Mean Platelet Volume 11.8 fL (7.4-10.4); Platelet Count 248 10x3/uL (130-400); RBC Distribution Width 13.1 % (11.5-14.5)
[2023-12-19 19:23] LABS: ALT (SGPT) 11 U/L (8-55); AST (SGOT) 21 U/L (5-34); Albumin 3.8 g/dL (3.4-4.8); Alkaline Phosphatase 112 U/L (40-110); Anion Gap 14 mmol/L (10-20); BUN (Urea Nitrogen) 27 mg/dL (9.8-20.1); Bilirubin, Total 0.6 mg/dL (0.2-1.2); Calc. Creatinine Clearance 0 mL/min (70-130); Calcium 9.5 mg/dL (7.8-10.44); Carbon Dioxide 23 mmol/L (23-31); Chloride 106 mmol/L (98-107); Estimated GFR 37; Glucose 182 mg/dL (83-110); Potassium 4.6 mmol/L (3.5-5.1); Protein, Total 6.8 g/dL (5.8-8.1); Sodium 138 mmol/L (136-145)
[2023-12-19 19:36] LABS: Troponin I 0.023 ng/mL (< 0.028)
[2023-12-19] MEDS ORDERED: fentaNYL 50 mcg/mL 1 mL Vial ONE (21:03)
[2023-12-19] MEDS ORDERED: Labetalol HCl 100 MG/20 ML VIAL SLOW IVP PRN (23:50)
[2023-12-20] LABS: Analyzer IN Cardio ER; Base Excess (BEa) 1.5 mEq/L (-2.0 to +3.0); Calcium, Ionized (arterial) 1.16 mmol/L (1.12-1.30); Carboxyhemoglobin (COHb) 0.2 gm% (0.0-3.0); Hematocrit-ABG 28 % (36.0-47.0); Hemoglobin (Hb) 9.5 g/dL (12.0-16.0); Potassium - ABG Lab 4.23 mmol/L (3.70-5.30); pH, Arterial 7.565 (7.35-7.45)
[2023-12-20 00:08] LABS: Puncture Site LEFT RADIAL
[2023-12-20 00:10] LABS: Puncture Site RIGHT RADIAL
[2023-12-20 02:31] LABS: Bacteria/HPF None Seen HPF (None Seen); Bilirubin Negative (Negative); Blood, Urine Negative (Negative); CAUTI Indications for Culture Alt mental st,lethar; Clarity Clear (Clear); Glucose, Urine (Dipstick) Normal (Negative); Ketone, Urine Negative (Negative); Leukocyte Negative Leu/uL (Negative); Nitrite Negative (Negative); Protein, Urine (Dipstick) Negative (Neg-Trace); RBC/HPF 0-3 HPF (0-3); Specific Gravity, Urine 1.003 (1.002-1.036); Squamous Epithelial 0-3 HPF (0-3); Urobilinogen Normal mg/dL (Less than 2); WBC/HPF 0-3 HPF (0-3); pH, Urine 6.5 (5.0-9.0)
[2023-12-20 02:41] LABS: Urine Culture Reflex No No
[2023-12-20] MEDS ORDERED: Furosemide 40 MG (4 mL) VIAL ONE ×2 (05:40→15:06)
[2023-12-20] MEDS: Furosemide 40 MG (4 mL) VIAL SLOW IVP SCH (06:10)
[2023-12-20 06:39] LABS: #Basophils Less than 0.03 10x3/uL (0.0-0.2); %Basophils 0.4 % (0.0-1.0); %Eosinophils 0.6 % (0.0-10.0); %Lymphocytes 24.1 % (21.0-51.0); %Monocytes 12.1 % (0.0-10.0); %Neutrophils 62.4 % (42.0-75.0); Hematocrit 29.5 % (36.0-47.0); Hemoglobin 9.2 g/dL (12.0-16.0); Mean Corpuscular HGB CONC 31.2 g/dL (32.0-36.0); Mean Corpuscular Hemoglobin 32.9 pg (27.0-31.0); Mean Corpuscular Volume 105.4 fL (78.0-98.0); Mean Platelet Volume 10.3 fL (7.4-10.4); Platelet Count 294 10x3/uL (130-400)
[2023-12-20 06:52] LABS: Anion Gap 13 mmol/L (10-20); BUN (Urea Nitrogen) 29 mg/dL (9.8-20.1); Calc. Creatinine Clearance 54 mL/min (70-130); Calcium 9.5 mg/dL (7.8-10.44); Carbon Dioxide 25 mmol/L (23-31); Chloride 104 mmol/L (98-107); Estimated GFR 34; Glucose 181 mg/dL (83-110); Potassium 4.4 mmol/L (3.5-5.1); Sodium 138 mmol/L (136-145)
[2023-12-20] MEDS ORDERED: Acetaminophen 325 MG TAB ONE ×2 (07:16→09:21)
[2023-12-20] MEDS ORDERED: Glucagon 1 MG/ML KIT IM PRN (07:53)
[2023-12-20] MEDS ORDERED: Dextrose 5% in Water 1,000 ML IV PRN (07:53)
[2023-12-20] MEDS ORDERED: Dextrose 50% Abboject 50 ML SYRINGE SLOW IVP PRN (07:53)
[2023-12-20] MEDS ORDERED: Apixaban 5 MG TAB ONE (09:20)
[2023-12-20] MEDS ORDERED: Carvedilol 25 MG TAB ONE (09:20)
[2023-12-20] MEDS ORDERED: Amlodipine 5 MG TAB ONE (09:20)
[2023-12-20] MEDS: Apixaban 5 MG TAB PO SCH (09:26)
[2023-12-20] MEDS: Carvedilol 25 MG TAB PO SCH (09:26)
[2023-12-20] MEDS: Acetaminophen 325 MG TAB PO PRN (09:26)
[2023-12-20] MEDS: Amlodipine 5 MG TAB PO SCH (09:27)
[2023-12-20] MEDS ORDERED: traMADol HCl 50 MG TAB ONE (14:49)
[2023-12-20] MEDS: traMADol HCl 50 MG TAB PO PRN (15:00)
[2023-12-20] MEDS: Ondansetron PF 4 MG/2 ML Vial IVP PRN (20:08)
[2023-12-20] MEDS: Morphine 2 MG/ML VIAL SLOW IVP SCH (22:29)
[2023-12-21 05:06] LABS: Anion Gap 14 mmol/L (10-20); BUN (Urea Nitrogen) 36 mg/dL (9.8-20.1); Calc. Creatinine Clearance 42 mL/min (70-130); Calcium 8.9 mg/dL (7.8-10.44); Carbon Dioxide 29 mmol/L (23-31); Chloride 101 mmol/L (98-107); Estimated GFR 28; Glucose 179 mg/dL (83-110); Potassium 4.5 mmol/L (3.5-5.1); Sodium 139 mmol/L (136-145)
[2023-12-21 05:09] LABS: #Basophils 0.03 10x3/uL (0.0-0.2); %Basophils 0.6 % (0.0-1.0); %Eosinophils 0.8 % (0.0-10.0); %Lymphocytes 27.1 % (21.0-51.0); %Monocytes 12.7 % (0.0-10.0); %Neutrophils 58.6 % (42.0-75.0); Hematocrit 29.1 % (36.0-47.0); Hemoglobin 9.1 g/dL (12.0-16.0); Mean Corpuscular HGB CONC 31.3 g/dL (32.0-36.0); Mean Corpuscular Hemoglobin 33.5 pg (27.0-31.0); Mean Platelet Volume 10.6 fL (7.4-10.4); Platelet Count 248 10x3/uL (130-400); RBC Distribution Width 12.8 % (11.5-14.5); Red Blood Cell (RBC) Count 2.72 mill/uL (4.20-5.40)
[2023-12-21] MEDS: Insulin Regular, Human 100 UNIT/ML 10 ML VIAL SC PRN (06:12)
[2023-12-22 03:54] LABS: #Basophils Less than 0.03 10x3/uL (0.0-0.2); %Basophils 0.4 % (0.0-1.0); %Eosinophils 1.7 % (0.0-10.0); %Lymphocytes 26.6 % (21.0-51.0); %Monocytes 16.1 % (0.0-10.0); %Neutrophils 54.8 % (42.0-75.0); Hematocrit 29.1 % (36.0-47.0); Hemoglobin 9.1 g/dL (12.0-16.0); Mean Corpuscular HGB CONC 31.3 g/dL (32.0-36.0); Mean Corpuscular Hemoglobin 32.7 pg (27.0-31.0); Mean Corpuscular Volume 104.7 fL (78.0-98.0); Mean Platelet Volume 10.6 fL (7.4-10.4); Platelet Count 233 10x3/uL (130-400); RBC Distribution Width 12.1 % (11.5-14.5); Red Blood Cell (RBC) Count 2.78 mill/uL (4.20-5.40)
[2023-12-22 04:17] LABS: Anion Gap 14 mmol/L (10-20); BUN (Urea Nitrogen) 45 mg/dL (9.8-20.1); Calc. Creatinine Clearance 39 mL/min (70-130); Calcium 8.7 mg/dL (7.8-10.44); Carbon Dioxide 27 mmol/L (23-31); Chloride 98 mmol/L (98-107); Estimated GFR 25; Glucose 174 mg/dL (83-110); Potassium 4.3 mmol/L (3.5-5.1); Sodium 135 mmol/L (136-145)
[2023-12-22] MEDS ORDERED: Glucagon 1 MG/ML KIT IM PRN (12:42)
[2023-12-22] MEDS ORDERED: Dextrose 5% in Water 1,000 ML IV PRN (12:42)
[2023-12-22] MEDS ORDERED: Dextrose 50% Abboject 50 ML SYRINGE SLOW IVP PRN (12:42)
[2023-12-22] MEDS: Insulin Lispro 100 UNIT/ML 10 ML VIAL SC PRN (16:37)
[2023-12-22] MEDS: Insulin Glargine 30 UNITS/0.3 ML VIAL SC SCH (20:48)
[2023-12-22] MEDS: Hydroxychloroquine Sulfate 200 MG TAB PO SCH (20:50)
[2023-12-22] MEDS: Cholecalciferol 1,000 UNITS (25 MCG) TAB PO SCH (20:50)
[2023-12-22] MEDS ORDERED: CLOBETASOL TOP SCH (21:00)
[2023-12-23 07:46] LABS: #Basophils Less than 0.03 10x3/uL (0.0-0.2); %Basophils 0.2 % (0.0-1.0); %Eosinophils 1.8 % (0.0-10.0); %Lymphocytes 23.4 % (21.0-51.0); %Monocytes 11.7 % (0.0-10.0); %Neutrophils 62.7 % (42.0-75.0); Hematocrit 30.5 % (36.0-47.0); Mean Corpuscular HGB CONC 32.8 g/dL (32.0-36.0); Mean Corpuscular Hemoglobin 34.6 pg (27.0-31.0); Mean Corpuscular Volume 105.5 fL (78.0-98.0); Mean Platelet Volume 10.7 fL (7.4-10.4); Platelet Count 230 10x3/uL (130-400); RBC Distribution Width 12.3 % (11.5-14.5); Red Blood Cell (RBC) Count 2.89 mill/uL (4.20-5.40)
[2023-12-23 08:05] LABS: ALT (SGPT) 15 U/L (8-55); AST (SGOT) 21 U/L (5-34); Albumin 3.6 g/dL (3.4-4.8); Alkaline Phosphatase 119 U/L (40-110); Anion Gap 13 mmol/L (10-20); BUN (Urea Nitrogen) 48 mg/dL (9.8-20.1); Bilirubin, Total 0.4 mg/dL (0.2-1.2); Calc. Creatinine Clearance 48 mL/min (70-130); Calcium 9.1 mg/dL (7.8-10.44); Carbon Dioxide 26 mmol/L (23-31); Chloride 96 mmol/L (98-107); Estimated GFR 32; Globulin 2.6 g/dL (2.4-3.5); Glucose 209 mg/dL (83-110); Potassium 4.3 mmol/L (3.5-5.1); Protein, Total 6.2 g/dL (5.8-8.1); Sodium 131 mmol/L (136-145)
[2023-12-23 09:34] VITALS: BMI 35.7
[2023-12-23] MEDS: sulfaSALAzine 500 MG TAB PO SCH ×2 (11:30→20:12)
[2023-12-24] MEDS: Methocarbamol 500 MG TAB PO SCH (03:04)
[2023-12-24] MEDS ORDERED: Electrolyte Replacement Protocol FS PRN (10:15)
[2023-12-24] MEDS: Pantoprazole 40 MG VIAL IVP SCH (11:27)
[2023-12-24] MEDS: Fludrocortisone Acetate 0.1 MG TAB PO SCH (13:48)
[2023-12-24] MEDS: Methocarbamol 500 MG TAB PO PRN (14:22)
[2023-12-24] MEDS: Magnesium 2 GM/50 ML(in water) 2 GM in Premix 1 BAG IVPB SCH (14:24)
[2023-12-24] MEDS: Insulin Glargine 30 UNITS/0.3 ML VIAL SC SCH (21:09)
[2023-12-25 05:48] LABS: #Basophils Less than 0.03 10x3/uL (0.0-0.2); %Basophils 0.5 % (0.0-1.0); %Eosinophils 1.9 % (0.0-10.0); %Lymphocytes 25.8 % (21.0-51.0); %Monocytes 11.7 % (0.0-10.0); %Neutrophils 59.9 % (42.0-75.0); Hematocrit 28.9 % (36.0-47.0); Hemoglobin 9.6 g/dL (12.0-16.0); Mean Corpuscular HGB CONC 33.2 g/dL (32.0-36.0); Mean Corpuscular Hemoglobin 33.6 pg (27.0-31.0); Platelet Count 220 10x3/uL (130-400); RBC Distribution Width 12.3 % (11.5-14.5); Red Blood Cell (RBC) Count 2.86 mill/uL (4.20-5.40)
[2023-12-25 06:16] LABS: ALT (SGPT) 14 U/L (8-55); AST (SGOT) 21 U/L (5-34); Albumin 3.5 g/dL (3.4-4.8); Alkaline Phosphatase 137 U/L (40-110); Anion Gap 13 mmol/L (10-20); BUN (Urea Nitrogen) 51 mg/dL (9.8-20.1); Bilirubin, Total 0.3 mg/dL (0.2-1.2); Calc. Creatinine Clearance 42 mL/min (70-130); Calcium 8.9 mg/dL (7.8-10.44); Carbon Dioxide 25 mmol/L (23-31); Chloride 98 mmol/L (98-107); Estimated GFR 28; Globulin 2.8 g/dL (2.4-3.5); Glucose 361 mg/dL (83-110); Potassium 3.9 mmol/L (3.5-5.1); Protein, Total 6.3 g/dL (5.8-8.1); Sodium 132 mmol/L (136-145)
[2023-12-25 07:52] LABS: Magnesium 2.3 mg/dL (1.6-2.6)
[2023-12-25] MEDS ORDERED: Polyethylene Glycol 3350 17 GM Packet PO PRN (09:05)
[2023-12-25] MEDS: Fludrocortisone Acetate 0.1 MG TAB PO SCH (10:00)
[2023-12-25] MEDS: Pantoprazole 40 MG VIAL IVP SCH (10:00)
[2023-12-25] MEDS ORDERED: Insulin Glargine 30 UNITS/0.3 ML VIAL SC SCH (21:00)
[2023-12-25] MEDS: Insulin Glargine 30 UNITS/0.3 ML VIAL SC SCH (21:17)
[2023-12-26 07:01] LABS: #Basophils Less than 0.03 10x3/uL (0.0-0.2); %Basophils 0.4 % (0.0-1.0); %Eosinophils 1.2 % (0.0-10.0); %Lymphocytes 25.1 % (21.0-51.0); %Monocytes 10.6 % (0.0-10.0); %Neutrophils 62.3 % (42.0-75.0); Hematocrit 29.4 % (36.0-47.0); Hemoglobin 9.4 g/dL (12.0-16.0); Mean Corpuscular Hemoglobin 33.2 pg (27.0-31.0); Mean Corpuscular Volume 103.9 fL (78.0-98.0); Mean Platelet Volume 11.2 fL (7.4-10.4); Platelet Count 223 10x3/uL (130-400); RBC Distribution Width 12.5 % (11.5-14.5); Red Blood Cell (RBC) Count 2.83 mill/uL (4.20-5.40)
[2023-12-26 07:34] LABS: ALT (SGPT) 27 U/L (8-55); AST (SGOT) 33 U/L (5-34); Albumin 3.6 g/dL (3.4-4.8); Alkaline Phosphatase 139 U/L (40-110); Anion Gap 12 mmol/L (10-20); BUN (Urea Nitrogen) 49 mg/dL (9.8-20.1); Bilirubin, Total 0.3 mg/dL (0.2-1.2); Calc. Creatinine Clearance 44 mL/min (70-130); Calcium 9.1 mg/dL (7.8-10.44); Carbon Dioxide 26 mmol/L (23-31); Chloride 100 mmol/L (98-107); Estimated GFR 28; Globulin 2.6 g/dL (2.4-3.5); Glucose 350 mg/dL (83-110); Potassium 4.3 mmol/L (3.5-5.1); Protein, Total 6.2 g/dL (5.8-8.1); Sodium 134 mmol/L (136-145)
[2023-12-26 11:12] VITALS: BMI 36.1
[2023-12-26] MEDS: Insulin Lispro 100 UNIT/ML 10 ML VIAL SC PRN (12:58)
[2023-12-26] MEDS: Fludrocortisone Acetate 0.1 MG TAB PO SCH (21:09)
[2023-12-26] MEDS: Insulin Glargine 30 UNITS/0.3 ML VIAL SC SCH (21:10)
[2023-12-27] MEDS: Pantoprazole DR 40 MG TAB PO SCH (08:39)
[2023-12-27] MEDS: Insulin Lispro 100 UNIT/ML 10 ML VIAL SC PRN (23:26)
[2023-12-28] MEDS: Insulin Glargine 30 UNITS/0.3 ML VIAL SC SCH (09:20)
[2023-12-28] MEDS: Meclizine HCl 12.5 MG TAB PO PRN (12:44)
[2023-12-29] MEDS: Ipratropium/Albuterol 3 ML NEB EZPAP PRN (20:26)
[2023-12-29] MEDS: Acetaminophen 500 MG TAB PO SCH (21:32)
[2023-12-30 05:26] LABS: #Basophils 0.04 10x3/uL (0.0-0.2); %Basophils 0.9 % (0.0-1.0); %Eosinophils 2.1 % (0.0-10.0); %Lymphocytes 36.2 % (21.0-51.0); %Monocytes 11.1 % (0.0-10.0); %Neutrophils 49.2 % (42.0-75.0); Hematocrit 26.8 % (36.0-47.0); Hemoglobin 8.4 g/dL (12.0-16.0); Mean Corpuscular HGB CONC 31.3 g/dL (32.0-36.0); Mean Corpuscular Hemoglobin 33.5 pg (27.0-31.0); Mean Corpuscular Volume 106.8 fL (78.0-98.0); Mean Platelet Volume 11.3 fL (7.4-10.4); Platelet Count 201 10x3/uL (130-400); RBC Distribution Width 12.8 % (11.5-14.5); Red Blood Cell (RBC) Count 2.51 mill/uL (4.20-5.40)
[2023-12-30 05:47] LABS: Anion Gap 12 mmol/L (10-20); BUN (Urea Nitrogen) 39 mg/dL (9.8-20.1); Calc. Creatinine Clearance 56 mL/min (70-130); Calcium 8.8 mg/dL (7.8-10.44); Carbon Dioxide 26 mmol/L (23-31); Chloride 105 mmol/L (98-107); Estimated GFR 37; Glucose 95 mg/dL (83-110); Magnesium 1.8 mg/dL (1.6-2.6); Potassium 4.1 mmol/L (3.5-5.1); Sodium 139 mmol/L (136-145)
[2023-12-30] MEDS: Magnesium 2 GM/50 ML(in water) 2 GM in Premix 1 BAG IVPB SCH (10:06)
[2023-12-31 09:01] LABS: #Basophils Less than 0.03 10x3/uL (0.0-0.2); %Basophils 0.5 % (0.0-1.0); %Eosinophils 1.7 % (0.0-10.0); %Lymphocytes 26.8 % (21.0-51.0); %Monocytes 9.3 % (0.0-10.0); %Neutrophils 60.7 % (42.0-75.0); Hematocrit 29.5 % (36.0-47.0); Hemoglobin 9.4 g/dL (12.0-16.0); Mean Corpuscular HGB CONC 31.9 g/dL (32.0-36.0); Mean Corpuscular Hemoglobin 33.1 pg (27.0-31.0); Mean Corpuscular Volume 103.9 fL (78.0-98.0); Mean Platelet Volume 11.7 fL (7.4-10.4); Platelet Count 212 10x3/uL (130-400); RBC Distribution Width 12.6 % (11.5-14.5); Red Blood Cell (RBC) Count 2.84 mill/uL (4.20-5.40)
[2023-12-31] MEDS: hydrALAZINE 10 MG TAB PO PRN (12:15)
[2023-12-31 12:52] VITALS: BP 191/79; TEMP 98.1
== END 2023-12-31 16:00 | DRG 291 ==
LOC: ERS 18:10 → ERHOLD 23:37 → CCU 12-20 19:41 → 2NO 12-25 16:18
PROVIDERS: ADMIT Internal Medicine; ATTEND Internal Medicine
PROC: 4A133R1 Monitoring of Arterial Saturation, Peripheral, Percutaneous Approach (ICD-10-PCS; 2023-12-19)
PROC: 5A09457 Assistance with Respiratory Ventilation, 24-96 Consecutive Hours, Continuous Positive Airway Pressure (ICD-10-PCS; 2023-12-20)
PROC: 4A00X4Z Measurement of Central Nervous Electrical Activity, External Approach (ICD-10-PCS; principal; 2023-12-23)
DX: I13.0 Hypertensive heart and chronic kidney disease with heart failure and stage 1 through stage 4 chronic kidney disease, or unspecified chronic kidney disease (principal); I50.33 Acute on chronic diastolic (congestive) heart failure; J96.01 Acute respiratory failure with hypoxia; N17.9 Acute kidney failure, unspecified; G93.40 Encephalopathy, unspecified; E87.1 Hypo-osmolality and hyponatremia; N18.4 Chronic kidney disease, stage 4 (severe); I48.91 Unspecified atrial fibrillation; E11.22 Type 2 diabetes mellitus with diabetic chronic kidney disease; G47.33 Obstructive sleep apnea (adult) (pediatric); M06.9 Rheumatoid arthritis, unspecified; E78.00 Pure hypercholesterolemia, unspecified; I16.0 Hypertensive urgency; E66.01 Morbid (severe) obesity due to excess calories; Z68.36 Body mass index [BMI] 36.0-36.9, adult; Z91.041 Radiographic dye allergy status; Z88.5 Allergy status to narcotic agent; Z79.4 Long term (current) use of insulin; Z79.01 Long term (current) use of anticoagulants; Z79.899 Other long term (current) drug therapy; Z88.7 Allergy status to serum and vaccine; Z90.710 Acquired absence of both cervix and uterus; Z90.49 Acquired absence of other specified parts of digestive tract
CPT/HCPCS: 36415; 36416; 70450; 70551; 71045; 71250; 74176; 80048; 80053; 81001; 82533; 82805; 83735; 83880; 84443; 84484; 85025; 93005; 93306; 94640; 94660; 95700; 95711; 95957; 96374; 96375; J1815; J1940; J2272; J2405; J2470; J3010; J3475; J7620

== ENCOUNTER 2024-01-17 10:18 | Inpatient (IN) | payer MEDICARE ==
[2024-01-17 11:04] LABS: #Basophils Less than 0.03 10x3/uL (0.0-0.2); %Basophils 0.3 % (0.0-1.0); %Eosinophils 0.7 % (0.0-10.0); %Lymphocytes 20.9 % (21.0-51.0); %Monocytes 10.1 % (0.0-10.0); %Neutrophils 67.7 % (42.0-75.0); Hematocrit 29.2 % (36.0-47.0); Hemoglobin 9.4 g/dL (12.0-16.0); Mean Corpuscular HGB CONC 32.2 g/dL (32.0-36.0); Mean Corpuscular Volume 102.5 fL (78.0-98.0); Platelet Count 217 10x3/uL (130-400); RBC Distribution Width 12.9 % (11.5-14.5); Red Blood Cell (RBC) Count 2.85 mill/uL (4.20-5.40)
[2024-01-17 11:19] LABS: ALT (SGPT) 9 U/L (8-55); AST (SGOT) 13 U/L (5-34); Albumin 3.8 g/dL (3.4-4.8); Alkaline Phosphatase 128 U/L (40-110); Anion Gap 14 mmol/L (10-20); BUN (Urea Nitrogen) 25 mg/dL (9.8-20.1); Bilirubin, Total 0.4 mg/dL (0.2-1.2); Calc. Creatinine Clearance 0 mL/min (70-130); Calcium 9.1 mg/dL (7.8-10.44); Carbon Dioxide 23 mmol/L (23-31); Chloride 109 mmol/L (98-107); Estimated GFR 39; Globulin 2.7 g/dL (2.4-3.5); Glucose 210 mg/dL (83-110); Lipase 35 U/L (8-78); Protein, Total 6.5 g/dL (5.8-8.1); Sodium 142 mmol/L (136-145)
[2024-01-17 11:26] LABS: Troponin I Less than 0.010 ng/mL (< 0.028)
[2024-01-17 14:15] LABS: Acetaminophen Less than 10 mcg/mL (Less than 10); Alcohol Less than 10.0 mg/dL (Less than 10); Salicylate Less than 8.0 mg/dL (Less than 8.0)
[2024-01-17 14:16] LABS: Actual Bicarbonate (HCO3a) 24.7 mEq/L (22-28); Analyzer IN Cardio ER; Base Excess (BEa) 1.1 mEq/L (-2.0 to +3.0); CO2 Tension 35.5 mmHg (35.0-45.0); Calcium, Ionized (arterial) 1.18 mmol/L (1.12-1.30); Carboxyhemoglobin (COHb) 1.6 gm% (0.0-3.0); Hematocrit-ABG 27 % (36.0-47.0); Hemoglobin (Hb) 9.2 g/dL (12.0-16.0); O2 Tension (PaO2), arterial 78.4 mmHg (> 70.0); Potassium - ABG Lab 3.62 mmol/L (3.70-5.30); pH, Arterial 7.461 (7.35-7.45)
[2024-01-17 14:21] LABS: ALV-art Gradient 48.345 mmHg (0-20); Puncture Site Right Radial artery
[2024-01-17 14:31] LABS: Amphetamine Not Detected (NotDetected); Barbiturates Screen Not Detected (NotDetected); Benzodiazepine Screen Not Detected (NotDetected); Cocaine Metabolite Screen Not Detected (NotDetected); Methadone Not Detected (NotDetected); Methamphetamine Not Detected (NotDetected); Opiate Screen Not Detected (NotDetected); Oxycodone Screen Not Detected (NotDetected); Phencyclidine (PCP) Not Detected (NotDetected); THC/Cannabinoid Screen Not Detected (NotDetected); Tricyclic Screen Not Detected (NotDetected)
[2024-01-17 14:38] LABS: Bacteria/HPF 3+ HPF (None Seen); Bilirubin Negative (Negative); Blood, Urine Negative (Negative); CAUTI Indications for Culture Dysuria,urgency,freq; Clarity Turbid (Clear); Glucose, Urine (Dipstick) Normal (Negative); Ketone, Urine Negative (Negative); Leukocyte 25 Leu/uL (Negative); Nitrite 2+ (Negative); Protein, Urine (Dipstick) 100 mg/dL (Neg-Trace); RBC/HPF 0-3 HPF (0-3); Specific Gravity, Urine 1.009 (1.002-1.036); Squamous Epithelial 0-3 HPF (0-3); Urobilinogen Normal mg/dL (Less than 2); pH, Urine 6.5 (5.0-9.0)
[2024-01-17 14:39] LABS: Urine Culture Reflex No No
[2024-01-17] MEDS ORDERED: Labetalol HCl 100 MG/20 ML VIAL ONE (15:41)
[2024-01-17] MEDS ORDERED: cefTRIAXone (ROCEPHIN) 1 GM VIAL ONE (15:43)
[2024-01-17] MEDS ORDERED: Sodium Chloride 0.9% 100 ML ONE (15:44)
[2024-01-17] MEDS ORDERED: Ondansetron PF 4 MG/2 ML Vial ONE (16:10)
[2024-01-17] MEDS ORDERED: Guaifenesin DM 100-10/5 ML UDCUP PO PRN (17:41)
[2024-01-17] MEDS ORDERED: Calcium Carbonate 500 MG ChewTAB PO PRN (17:41)
[2024-01-17] MEDS ORDERED: Ondansetron ODT 4 MG TAB PO PRN (17:41)
[2024-01-17] MEDS ORDERED: Ipratropium/Albuterol 3 ML NEB EZPAP PRN (17:45)
[2024-01-17] MEDS ORDERED: Dextrose 5% in Water 1,000 ML IV PRN (17:48)
[2024-01-17] MEDS ORDERED: Dextrose 50% Abboject 50 ML SYRINGE SLOW IVP PRN (17:48)
[2024-01-17] MEDS ORDERED: Glucagon 1 MG/ML KIT IM PRN (17:48)
[2024-01-17] MEDS ORDERED: Lidocaine 4% Patch ONE (18:35)
[2024-01-17] MEDS: diphenhydrAMINE 50 MG/ML VIAL IVP SCH (21:56)
[2024-01-17] MEDS: Acetaminophen 650 MG Suppository PR PRN (21:58)
[2024-01-17] MEDS: Furosemide 20 MG (2 mL) VIAL SLOW IVP SCH (21:59)
[2024-01-17] MEDS: Scopolamine 1 mg/72 hour Patch TOP SCH (22:19)
[2024-01-17] MEDS: Acetaminophen 325 MG TAB PO SCH (22:55)
[2024-01-17] MEDS: Insulin Glargine 30 UNITS/0.3 ML VIAL SC SCH (22:56)
[2024-01-17] MEDS: Hydroxychloroquine Sulfate 200 MG TAB PO SCH (22:56)
[2024-01-17] MEDS: Apixaban 5 MG TAB PO SCH (22:56)
[2024-01-18 04:32] VITALS: BMI 36.1
[2024-01-18] MEDS: hydrALAZINE 20 MG/ML VIAL SLOW IVP PRN (04:55)
[2024-01-18 05:31] LABS: #Basophils 0.03 10x3/uL (0.0-0.2); %Basophils 0.4 % (0.0-1.0); %Eosinophils 0.6 % (0.0-10.0); %Lymphocytes 16.1 % (21.0-51.0); %Neutrophils 72.5 % (42.0-75.0); Hematocrit 27.9 % (36.0-47.0); Hemoglobin 8.8 g/dL (12.0-16.0); Mean Corpuscular HGB CONC 31.5 g/dL (32.0-36.0); Mean Corpuscular Hemoglobin 33.2 pg (27.0-31.0); Mean Corpuscular Volume 105.3 fL (78.0-98.0); Mean Platelet Volume 12.1 fL (7.4-10.4); Platelet Count 171 10x3/uL (130-400); RBC Distribution Width 12.9 % (11.5-14.5); Red Blood Cell (RBC) Count 2.65 mill/uL (4.20-5.40)
[2024-01-18 05:35] LABS: ALT (SGPT) 7 U/L (8-55); AST (SGOT) 19 U/L (5-34); Albumin 3.5 g/dL (3.4-4.8); Alkaline Phosphatase 109 U/L (40-110); Anion Gap 19 mmol/L (10-20); BUN (Urea Nitrogen) 21 mg/dL (9.8-20.1); Bilirubin, Total 0.4 mg/dL (0.2-1.2); Calc. Creatinine Clearance 61 mL/min (70-130); Carbon Dioxide 23 mmol/L (23-31); Chloride 106 mmol/L (98-107); Estimated GFR 41; Globulin 2.5 g/dL (2.4-3.5); Glucose 170 mg/dL (83-110); Potassium 4.3 mmol/L (3.5-5.1); Sodium 144 mmol/L (136-145)
[2024-01-18] MEDS: Ondansetron PF 4 MG/2 ML Vial IVP PRN (08:39)
[2024-01-18] MEDS ORDERED: FLU (Fluad Triv) TS24-25 (65UP)/MF59C/PF 45 MCG/0.5 ML Syringe IM ONE (09:00)
[2024-01-18] MEDS ORDERED: Finerenone [Kerendia] 10 MG Tablet PO SCH (10:00)
[2024-01-18] MEDS: Carvedilol 25 MG TAB PO SCH ×2 (10:50→21:12)
[2024-01-18] MEDS: Hydroxychloroquine Sulfate 200 MG TAB PO SCH (10:51)
[2024-01-18] MEDS: Fludrocortisone Acetate 0.1 MG TAB PO SCH ×2 (10:54→21:13)
[2024-01-18] MEDS: sulfaSALAzine 500 MG TAB PO SCH ×2 (10:55→21:14)
[2024-01-18] MEDS: cefTRIAXone\\ROCEPHIN 1 GM in Sodium Chloride 0.9% 100 ML IVPB SCH (15:25)
[2024-01-18] MEDS: hydrALAZINE 25 MG TAB PO SCH (15:29)
[2024-01-18] MEDS: Acetaminophen 325 MG TAB PO PRN (16:44)
[2024-01-18] MEDS: Insulin Lispro 100 UNIT/ML 10 ML VIAL SC PRN (17:48)
[2024-01-18] MEDS ORDERED: sulfaSALAzine 500 MG TAB PO SCH (21:00)
[2024-01-19 05:33] LABS: ALT (SGPT) 8 U/L (8-55); AST (SGOT) 15 U/L (5-34); Albumin 3.3 g/dL (3.4-4.8); Alkaline Phosphatase 105 U/L (40-110); Anion Gap 13 mmol/L (10-20); BUN (Urea Nitrogen) 26 mg/dL (9.8-20.1); Bilirubin, Total 0.4 mg/dL (0.2-1.2); Calc. Creatinine Clearance 53 mL/min (70-130); Calcium 8.1 mg/dL (7.8-10.44); Carbon Dioxide 25 mmol/L (23-31); Chloride 103 mmol/L (98-107); Estimated GFR 34; Globulin 2.2 g/dL (2.4-3.5); Glucose 180 mg/dL (83-110); Protein, Total 5.5 g/dL (5.8-8.1); Sodium 137 mmol/L (136-145)
[2024-01-19 05:40] LABS: #Basophils 0.04 10x3/uL (0.0-0.2); %Basophils 0.5 % (0.0-1.0); %Eosinophils 1.4 % (0.0-10.0); %Lymphocytes 14.5 % (21.0-51.0); %Monocytes 10.1 % (0.0-10.0); %Neutrophils 73.2 % (42.0-75.0); Hematocrit 26.3 % (36.0-47.0); Hemoglobin 8.1 g/dL (12.0-16.0); Mean Corpuscular HGB CONC 30.8 g/dL (32.0-36.0); Mean Corpuscular Hemoglobin 32.9 pg (27.0-31.0); Mean Corpuscular Volume 106.9 fL (78.0-98.0); Mean Platelet Volume 10.8 fL (7.4-10.4); Platelet Count 181 10x3/uL (130-400); RBC Distribution Width 12.8 % (11.5-14.5); Red Blood Cell (RBC) Count 2.46 mill/uL (4.20-5.40)
[2024-01-19] MEDS ORDERED: Finerenone [Kerendia] 10 MG Tablet PO SCH (09:00)
[2024-01-19] MEDS: Meropenem 1 GM in Sodium Chloride 0.9% 100 ML IVPB SCH (14:57)
[2024-01-19] MEDS: Pantoprazole DR 40 MG TAB PO SCH ×2 (15:02→21:56)
[2024-01-19] MEDS: Cholecalciferol 1,000 UNITS (25 MCG) TAB PO SCH (21:56)
[2024-01-19] MEDS ORDERED: Meropenem 1 GM in Sodium Chloride 0.9% 100 ML IVPB SCH (23:59)
[2024-01-20 08:49] LABS: #Basophils 0.04 10x3/uL (0.0-0.2); %Basophils 0.7 % (0.0-1.0); %Lymphocytes 18.2 % (21.0-51.0); %Monocytes 8.9 % (0.0-10.0); %Neutrophils 69.9 % (42.0-75.0); Hematocrit 28.9 % (36.0-47.0); Hemoglobin 9.1 g/dL (12.0-16.0); Mean Corpuscular HGB CONC 31.5 g/dL (32.0-36.0); Mean Corpuscular Hemoglobin 33.1 pg (27.0-31.0); Mean Corpuscular Volume 105.1 fL (78.0-98.0); Platelet Count 199 10x3/uL (130-400); Red Blood Cell (RBC) Count 2.75 mill/uL (4.20-5.40)
[2024-01-20 09:05] LABS: ALT (SGPT) 7 U/L (8-55); AST (SGOT) 15 U/L (5-34); Albumin 3.4 g/dL (3.4-4.8); Anion Gap 13 mmol/L (10-20); BUN (Urea Nitrogen) 32 mg/dL (9.8-20.1); Bilirubin, Total 0.4 mg/dL (0.2-1.2); Calc. Creatinine Clearance 51 mL/min (70-130); Calcium 8.6 mg/dL (7.8-10.44); Carbon Dioxide 26 mmol/L (23-31); Chloride 103 mmol/L (98-107); Estimated GFR 32; Globulin 2.7 g/dL (2.4-3.5); Glucose 184 mg/dL (83-110); Protein, Total 6.1 g/dL (5.8-8.1); Sodium 138 mmol/L (136-145)
[2024-01-20] MEDS: Meclizine HCl 25 MG TAB PO SCH (09:11)
[2024-01-20] MEDS: Ascorbic Acid 500 mg Chewable Tablet PO SCH (09:11)
[2024-01-20 11:20] LABS: Alkaline Phosphatase 116 U/L (40-110)
[2024-01-20 12:10] VITALS: TEMP 98.7
[2024-01-20 12:22] VITALS: BP 144/70
== END 2024-01-20 13:30 | disposition home health service (06) | DRG 690 ==
LOC: SUATTDRO 10:18 → ERS 10:18 → 2SE 17:28
PROVIDERS: ADMIT Internal Medicine; ATTEND Internal Medicine
PROC: 4A033R1 Measurement of Arterial Saturation, Peripheral, Percutaneous Approach (ICD-10-PCS; principal; 2024-01-17)
PROC: 5A09357 Assistance with Respiratory Ventilation, Less than 24 Consecutive Hours, Continuous Positive Airway Pressure (ICD-10-PCS; 2024-01-17)
DX: N39.0 Urinary tract infection, site not specified (principal); I48.91 Unspecified atrial fibrillation; E78.5 Hyperlipidemia, unspecified; E11.22 Type 2 diabetes mellitus with diabetic chronic kidney disease; I12.9 Hypertensive chronic kidney disease with stage 1 through stage 4 chronic kidney disease, or unspecified chronic kidney disease; D64.9 Anemia, unspecified; G47.33 Obstructive sleep apnea (adult) (pediatric); Z98.890 Other specified postprocedural states; Z90.49 Acquired absence of other specified parts of digestive tract; Z88.5 Allergy status to narcotic agent; Z90.710 Acquired absence of both cervix and uterus; Z88.2 Allergy status to sulfonamides; Z88.7 Allergy status to serum and vaccine; Z88.8 Allergy status to other drugs, medicaments and biological substances; Z82.49 Family history of ischemic heart disease and other diseases of the circulatory system; Z99.81 Dependence on supplemental oxygen; Z86.16 Personal history of COVID-19
CPT/HCPCS: 36415; 36416; 36600; 70450; 71045; 71250; 74177; 80053; 80306; 80307; 81001; 82805; 83690; 83880; 84484; 85025; 87077; 87086; 87186; 93005; 96374; 96375; 96376; J0360; J0696; J1200; J1815; J1940; J2185; J2405

== ENCOUNTER 2024-03-19 15:28 | Emergency (ER) | payer MEDICARE ==
[2024-03-19 16:03] LABS: Bacteria/HPF None Seen HPF (None Seen); Bilirubin Negative (Negative); Blood, Urine Negative (Negative); CAUTI Indications for Culture Dysuria,urgency,freq; Clarity Clear (Clear); Glucose, Urine (Dipstick) Normal (Negative); Ketone, Urine Negative (Negative); Leukocyte Negative Leu/uL (Negative); Nitrite Negative (Negative); Protein, Urine (Dipstick) 30 mg/dL (Neg-Trace); RBC/HPF 0-3 HPF (0-3); Specific Gravity, Urine 1.012 (1.002-1.036); Squamous Epithelial 0-3 HPF (0-3); Urobilinogen Normal mg/dL (Less than 2); WBC/HPF 0-3 HPF (0-3)
[2024-03-19 16:07] LABS: Urine Culture Reflex No No
== END 2024-03-19 16:18 | disposition left against medical advice (07) ==
LOC: ERS 15:28
DX: Z53.21 Procedure and treatment not carried out due to patient leaving prior to being seen by health care provider (principal)
CPT/HCPCS: 81001; 93005

== ENCOUNTER 2024-07-08 09:29 | Inpatient (IN) | payer MEDICARE ==
[2024-07-08] MEDS ORDERED: Naloxone HCl 0.4 mg/ml Vial ONE (09:41)
[2024-07-08 09:57] LABS: Actual Bicarbonate (HCO3v) 19.6 mEq/L (22-28); Analyzer IN Cardio ER; Base Excess -4.6 mEq/L (-2.0 to +3.0); Calcium, Ionized (venous) 1.17 mmol/L (1.16-1.32); Chloride (VBG) 106 mmol/L (98-106); Hematocrit-VBG 32 % (36.0-47.0); Potassium (VBG) 5.26 mmol/L (3.70-5.30); Sodium 140 mmol/L (133-146); pH (venous) 7.386 (7.32-7.43)
[2024-07-08 10:01] LABS: #Basophils Less than 0.03 10x3/uL (0.0-0.2); %Basophils 0.4 % (0.0-1.0); %Eosinophils 1.5 % (0.0-10.0); %Lymphocytes 24.2 % (21.0-51.0); %Monocytes 10.8 % (0.0-10.0); %Neutrophils 62.7 % (42.0-75.0); Hematocrit 30.8 % (36.0-47.0); Hemoglobin 9.9 g/dL (12.0-16.0); Mean Corpuscular HGB CONC 32.1 g/dL (32.0-36.0); Mean Corpuscular Hemoglobin 33.2 pg (27.0-31.0); Mean Corpuscular Volume 103.4 fL (78.0-98.0); Mean Platelet Volume 10.8 fL (7.4-10.4); Platelet Count 215 10x3/uL (130-400); RBC Distribution Width 14.1 % (11.5-14.5); Red Blood Cell (RBC) Count 2.98 mill/uL (4.20-5.40)
[2024-07-08 10:18] LABS: Bacteria/HPF None Seen HPF (None Seen); Bilirubin Negative (Negative); Blood, Urine Negative (Negative); CAUTI Indications for Culture < 2yrs of age; Clarity Clear (Clear); Glucose, Urine (Dipstick) Normal (Negative); Ketone, Urine Negative (Negative); Leukocyte Negative Leu/uL (Negative); Nitrite Negative (Negative); Protein, Urine (Dipstick) Negative (Neg-Trace); RBC/HPF 0-3 HPF (0-3); Specific Gravity, Urine 1.002 (1.002-1.036); Squamous Epithelial 0-3 HPF (0-3); Urobilinogen Normal mg/dL (Less than 2); WBC/HPF None Seen HPF (0-3)
[2024-07-08 10:26] LABS: Urine Culture Reflex Yes Yes
[2024-07-08 10:31] LABS: ALT (SGPT) 21 U/L (Less than 34); AST (SGOT) 32 U/L (11-34); Albumin 3.8 g/dL (3.1-4.5); Alkaline Phosphatase 141 U/L (40-110); Anion Gap 14 mmol/L (10-20); BUN (Urea Nitrogen) 32 mg/dL (9.8-20.1); Bilirubin, Total 0.5 mg/dL (0.3-1.2); Calc. Creatinine Clearance 0 mL/min (70-130); Calcium 8.9 mg/dL (7.8-10.44); Carbon Dioxide 22 mmol/L (23-31); Chloride 109 mmol/L (98-107); Estimated GFR 41; Glucose 130 mg/dL (83-110); Potassium 5.4 mmol/L (3.5-5.1); Protein, Total 6.8 g/dL (5.8-8.1); Sodium 140 mmol/L (136-145)
[2024-07-08] MEDS ORDERED: Ondansetron PF 4 MG/2 ML Vial ONE (11:30)
[2024-07-08] MEDS ORDERED: Senokot S 8.6-50 MG TAB PO PRN (14:46)
[2024-07-08] MEDS ORDERED: Bisacodyl 5 MG TAB PO PRN (14:46)
[2024-07-08] MEDS ORDERED: Ondansetron PF 4 MG/2 ML Vial IVP PRN (14:46)
[2024-07-08] MEDS ORDERED: Melatonin 3 MG TAB PO PRN (14:46)
[2024-07-08] MEDS ORDERED: Ondansetron ODT 4 MG TAB PO PRN (14:46)
[2024-07-08] MEDS ORDERED: hydrALAZINE 20 MG/ML VIAL SLOW IVP PRN (14:46)
[2024-07-08] MEDS ORDERED: Dextrose 5% in Water 1,000 ML IV PRN (14:55)
[2024-07-08] MEDS ORDERED: Insulin Regular, Human 100 UNIT/ML 10 ML VIAL SC PRN (14:55)
[2024-07-08] MEDS ORDERED: Dextrose 50% Abboject 50 ML SYRINGE SLOW IVP PRN (14:55)
[2024-07-08] MEDS ORDERED: Glucagon 1 MG/ML KIT IM PRN (14:55)
[2024-07-08 16:17] LABS: Anion Gap 12 mmol/L (10-20); BUN (Urea Nitrogen) 28 mg/dL (9.8-20.1); Calc. Creatinine Clearance 0 mL/min (70-130); Calcium 8.7 mg/dL (7.8-10.44); Carbon Dioxide 22 mmol/L (23-31); Chloride 111 mmol/L (98-107); Estimated GFR 48; Glucose 69 mg/dL (83-110); Potassium 5.2 mmol/L (3.5-5.1); Sodium 140 mmol/L (136-145)
[2024-07-08 16:22] LABS: Troponin I Less than 0.010 ng/mL (< 0.028)
[2024-07-08 19:23] VITALS: BMI 33.5
[2024-07-08] MEDS: Acetaminophen 325 MG TAB PO PRN (20:11)
[2024-07-08] MEDS: Atorvastatin Calcium 40 MG TAB PO SCH (20:12)
[2024-07-08] MEDS: traMADol HCl 50 MG TAB PO PRN (21:41)
[2024-07-09 04:41] LABS: #Basophils 0.03 10x3/uL (0.0-0.2); %Basophils 0.7 % (0.0-1.0); %Eosinophils 2.4 % (0.0-10.0); %Lymphocytes 33.6 % (21.0-51.0); %Monocytes 10.5 % (0.0-10.0); %Neutrophils 52.6 % (42.0-75.0); Hematocrit 28.8 % (36.0-47.0); Hemoglobin 8.8 g/dL (12.0-16.0); Mean Corpuscular HGB CONC 30.6 g/dL (32.0-36.0); Mean Corpuscular Hemoglobin 32.6 pg (27.0-31.0); Mean Corpuscular Volume 106.7 fL (78.0-98.0); Platelet Count 194 10x3/uL (130-400); RBC Distribution Width 14.3 % (11.5-14.5)
[2024-07-09 05:35] LABS: Anion Gap 12 mmol/L (10-20); BUN (Urea Nitrogen) 28 mg/dL (9.8-20.1); Calc. Creatinine Clearance 60 mL/min (70-130); Calcium 8.5 mg/dL (7.8-10.44); Carbon Dioxide 23 mmol/L (23-31); Chloride 111 mmol/L (98-107); Cholesterol 182 mg/dl (< 200 Desired); Estimated GFR 42; Glucose 84 mg/dL (83-110); HDL Cholesterol 45 mg/dL (>60 Neg Risk); LDL Cholesterol, Calculated 114 mg/dL; Sodium 141 mmol/L (136-145); Triglycerides 115 mg/dL (Less than 150)
[2024-07-09] MEDS: Aspirin 81 mg Enteric Coated Tablet PO SCH (08:49)
[2024-07-09] MEDS ORDERED: Non-Formulary Item 1 EACH (Benzonatate [Benzonatate] 200 MG Capsule) PO PRN (11:13)
[2024-07-09] MEDS ORDERED: Meclizine HCl 25 MG TAB PO PRN (11:13)
[2024-07-09] MEDS ORDERED: Nitroglycerin 0.4 MG TAB (25 Tab Bottle) SL PRN ×2 (11:13→12:22)
[2024-07-09] MEDS: hydrALAZINE 25 MG TAB PO SCH (14:37)
[2024-07-09] MEDS ORDERED: Non-Formulary Item 1 EACH (Ascorbic Acid [Vitamin C] 1,000 MG Tablet) PO SCH (21:00)
[2024-07-09] MEDS ORDERED: Non-Formulary Item 1 EACH (Melatonin [Melatonin] 10 MG Tablet) PO SCH (21:00)
[2024-07-09] MEDS: sulfaSALAzine 500 MG TAB PO SCH (21:01)
[2024-07-09] MEDS: Isosorbide Dinitrate 20 MG TAB PO SCH (21:02)
[2024-07-09] MEDS: Apixaban 5 MG TAB PO SCH (21:02)
[2024-07-09] MEDS: Ascorbic Acid 500 mg Chewable Tablet PO SCH (21:02)
[2024-07-09] MEDS: Fish Oil 1,000 MG CAP PO SCH (21:02)
[2024-07-09] MEDS: Melatonin 3 MG TAB PO SCH (21:02)
[2024-07-09] MEDS: traMADol HCl 50 MG TAB PO SCH (23:38)
[2024-07-10 03:59] LABS: #Basophils 0.03 10x3/uL (0.0-0.2); %Basophils 0.8 % (0.0-1.0); %Eosinophils 2.1 % (0.0-10.0); %Lymphocytes 29.1 % (21.0-51.0); %Monocytes 12.3 % (0.0-10.0); %Neutrophils 55.4 % (42.0-75.0); Hematocrit 27.3 % (36.0-47.0); Hemoglobin 8.5 g/dL (12.0-16.0); Mean Corpuscular HGB CONC 31.1 g/dL (32.0-36.0); Mean Corpuscular Hemoglobin 33.3 pg (27.0-31.0); Mean Corpuscular Volume 107.1 fL (78.0-98.0); Mean Platelet Volume 10.8 fL (7.4-10.4); Platelet Count 167 10x3/uL (130-400); RBC Distribution Width 13.6 % (11.5-14.5); Red Blood Cell (RBC) Count 2.55 mill/uL (4.20-5.40)
[2024-07-10 04:11] LABS: Anion Gap 11 mmol/L (10-20); BUN (Urea Nitrogen) 28 mg/dL (9.8-20.1); Calc. Creatinine Clearance 54 mL/min (70-130); Calcium 8.5 mg/dL (7.8-10.44); Carbon Dioxide 24 mmol/L (23-31); Chloride 106 mmol/L (98-107); Estimated GFR 36; Glucose 259 mg/dL (83-110); Potassium 5.4 mmol/L (3.5-5.1); Sodium 136 mmol/L (136-145)
[2024-07-10] MEDS: Insulin Regular, Human 100 UNIT/ML 10 ML VIAL SC PRN (06:16)
[2024-07-10] MEDS ORDERED: METHYLSULFONYLMETHANE 1000 MG PO SCH ×2 (09:00)
[2024-07-10] MEDS ORDERED: Furosemide 20 MG TAB PO SCH (09:00)
[2024-07-10] MEDS ORDERED: Non-Formulary Item 1 EACH (Hydrochlorothiazide [Hydrochlorothiazide] 50 MG Tablet) PO SCH (09:00)
[2024-07-10] MEDS ORDERED: TURMERIC ROOT EXTRACT 500 MG PO SCH ×2 (09:00)
[2024-07-10] MEDS ORDERED: FINERENONE 10 MG PO SCH (09:00)
[2024-07-10] MEDS ORDERED: Non-Formulary Item 1 EACH (Losartan [Cozaar] 50 MG Tab) PO SCH (09:00)
[2024-07-10] MEDS ORDERED: Finerenone [Kerendia] 10 MG Tablet PO SCH (09:00)
[2024-07-10] MEDS: Benzonatate 100 MG CAP PO PRN (09:16)
[2024-07-10] MEDS: Metoprolol Tartrate 25 MG TAB PO SCH (09:16)
[2024-07-10] MEDS: NIFEdipine XL 60 MG ER.TAB PO SCH (09:17)
[2024-07-10] MEDS: Furosemide 20 MG TAB PO SCH (09:17)
[2024-07-10] MEDS: CO Q-10 CAPSULE 100 MG PO SCH (09:18)
[2024-07-10] MEDS: Carvedilol 25 MG TAB PO SCH (09:18)
[2024-07-10] MEDS: Losartan 25 MG TAB PO SCH (09:18)
[2024-07-10] MEDS: Hydrochlorothiazide 25 MG TAB PO SCH (09:19)
[2024-07-10 12:51] VITALS: BP 164/84; TEMP 98.5
== END 2024-07-10 12:30 | disposition home or self-care (01) | DRG 948 ==
LOC: ERS 09:29 → INTOOBSV 14:17 → ERHOLD 14:17 → 2SE 18:55 → OBSVTOIN 07-10 09:59
PROVIDERS: ADMIT Family Medicine; ATTEND Family Medicine
PROC: 4A00X4Z Measurement of Central Nervous Electrical Activity, External Approach (ICD-10-PCS; principal; 2024-07-09)
PROC: 5A09357 Assistance with Respiratory Ventilation, Less than 24 Consecutive Hours, Continuous Positive Airway Pressure (ICD-10-PCS; 2024-07-09)
DX: R41.82 Altered mental status, unspecified (principal); J96.10 Chronic respiratory failure, unspecified whether with hypoxia or hypercapnia; I13.0 Hypertensive heart and chronic kidney disease with heart failure and stage 1 through stage 4 chronic kidney disease, or unspecified chronic kidney disease; I50.32 Chronic diastolic (congestive) heart failure; N18.4 Chronic kidney disease, stage 4 (severe); D61.818 Other pancytopenia; R53.1 Weakness; E78.5 Hyperlipidemia, unspecified; E11.22 Type 2 diabetes mellitus with diabetic chronic kidney disease; M06.9 Rheumatoid arthritis, unspecified; G47.33 Obstructive sleep apnea (adult) (pediatric); I48.0 Paroxysmal atrial fibrillation; D63.1 Anemia in chronic kidney disease; Z99.81 Dependence on supplemental oxygen; Z88.5 Allergy status to narcotic agent; Z88.2 Allergy status to sulfonamides; Z88.8 Allergy status to other drugs, medicaments and biological substances; Z88.7 Allergy status to serum and vaccine; Z90.49 Acquired absence of other specified parts of digestive tract; Z90.710 Acquired absence of both cervix and uterus; Z98.891 History of uterine scar from previous surgery; Z98.890 Other specified postprocedural states; B96.20 Unspecified Escherichia coli [E. coli] as the cause of diseases classified elsewhere
CPT/HCPCS: 36415; 36416; 70450; 70551; 71045; 80048; 80053; 80061; 81001; 82805; 83605; 83735; 83880; 84443; 84484; 85025; 86850; 86900; 86901; 87040; 87077; 87086; 87186; 93005; 93306; 93880; 94760; 95700; 95711; 95957; 96374; 96375; J1815; J2310; J2405